=== PATIENT | male | born 1960 | race African-American/Black ===

== ENCOUNTER 2018-05-21 13:32 | Inpatient (IN) | payer OTHER ==
[2018-05-21] MEDS: METHYLPREDNISOLONE 125 MG INJ IV (14:27)
[2018-05-21] MEDS: ONDANSETRON 4 MG INJ IV ×2 (14:27→16:44)
[2018-05-21] MEDS: HYDROmorphONE 1 MG/ML SYG IV ×2 (14:27→16:44)
[2018-05-21] MEDS: NICARDipine HCL 30 MG CAPSULE PO ×2 (17:47→18:43)
[2018-05-21] MEDS: hydrALAzine 20 MG INJ IV (18:45)
[2018-05-21 19:03] LABS: WHITE BLOOD COUNT 25.9 10^3/ul (4.8-10.8)
[2018-05-21 19:03] LABS: ABNORMAL IP MESSAGE 1; HEMATOCRIT 36.8 % (42.0-52.0); HEMOGLOBIN 12.5 g/dl (14.0-18.0); MEAN CORPUSCULAR HEMOGLOBIN 24.9 pg (29.0-33.0); MEAN CORPUSCULAR VOLUME 73.3 fl (82.0-101.0); MEAN PLATELET VOLUME 11.9 fl (7.4-10.4); PLATELET COUNT 221 10^3/UL (140-415); POSITIVE DIFF @See below; RED BLOOD COUNT 5.02 10^6/ul (4.70-6.10); RED CELL DISTRIBUTION WIDTH 13.8 % (11.5-14.5)
[2018-05-21 19:11] LABS: ADD MAN DIFF? YES
[2018-05-21 19:23] LABS: ALANINE AMINOTRANSFERASE 57 IU/L (13-69); ALBUMIN 3.7 g/dl (3.3-4.9); ALBUMIN/GLOBULIN RATIO 1.05; ALKALINE PHOSPHATASE 109 IU/L (42-121); ANION GAP 16 (8-16); ASPARTATE AMINO TRANSFERASE 64 IU/L (15-46); BILIRUBIN,INDIRECT 0.8 mg/dl (0-1.1); BILIRUBIN,TOTAL 0.9 mg/dl (0.2-1.3); BLOOD UREA NITROGEN 46 mg/dl (7-20); CALCIUM 8.6 mg/dl (8.4-10.2); CARBON DIOXIDE 26 mmol/L (21-31); CHLORIDE 94 mmol/L (97-110); CREATININE 2.08 mg/dl (0.61-1.24); GLUCOSE 140 mg/dl (70-220); POTASSIUM 3.8 mmol/L (3.5-5.1); SODIUM 132 mmol/L (135-144); TOTAL PROTEIN 7.2 g/dl (6.1-8.1)
[2018-05-21] MEDS ORDERED: ONDANSETRON 4 MG INJ IV ×2 (19:30→20:30)
[2018-05-21] MEDS ORDERED: ACETAMINOPHEN 325 MG TAB PO ×2 (19:30→20:30)
[2018-05-21 19:55] LABS: ANISOCYTOSIS 1+ (0-0); BAND NEUTROPHILS #M 2.5 10^3/ul (0.0-0.6); BAND NEUTROPHILS % (M) 10 % (0-4); EOSINOPHILS % (M) 1 % (0-7); GIANT THROMBO% (M) 1 % (0-0); LYMPHOCYTES #M 0.5 10^3/ul (0.8-2.9); LYMPHOCYTES % (M) 2 % (15-51); MONOCYTE #M 0.5 10^3/ul (0.3-0.9); MONOCYTES % (M) 2 % (0-11); PLATELET ESTIMATE NORMAL; POIKILOCYTOSIS 2+ (0-0); SEG NEUT #M 22.7 10^3/ul (1.6-7.5); SEGMENTED NEUTROPHILS (M) % 85 % (39-77); SMUDGE%M 26 % (0-0)
[2018-05-21] MEDS ORDERED: NACL 0.9% 3 ML SYG IV (20:30)
[2018-05-21] MEDS ORDERED: VANCOMYCIN IV PER PHARMACY XX (20:30)
[2018-05-21] MEDS ORDERED: ALBUTEROL/IPRATROPIUM (NEB) 3 ML AMP HHN (20:30)
[2018-05-21] MEDS ORDERED: HYDROCODONE/APAP (5/325) TAB PO (20:30)
[2018-05-21] MEDS: SOD CHLORIDE 0.9% 1,000 ML IV (23:13)
[2018-05-21] MEDS: VANCOMYCIN 2 GM in SOD CHLORIDE 0.9% 500 ML IVPB (23:14)
[2018-05-21] MEDS: HYDROCODONE/APAP (5/325) TAB PO (23:21)
[2018-05-22 03:08] LABS: ADD UMIC YES; UR ASCORBIC ACID NEGATIVE (NEGATIVE); UR BACTERIA FEW /HPF (NONE SEEN); UR BILIRUBIN (Dip) NEGATIVE (NEGATIVE); UR BLOOD (Dip) 2+ mg/dL (NEGATIVE); UR CLARITY CLOUDY (CLEAR); UR COLOR AMBER (YELLOW); UR GLUCOSE (Dip) NEGATIVE (NEGATIVE); UR KETONES (Dip) NEGATIVE (NEGATIVE); UR LEUKOCYTE ESTERASE (Dip) NEGATIVE Leu/ul (NEGATIVE); UR NITRITE (Dip) NEGATIVE (NEGATIVE); UR RBC 10 /HPF (0-5); UR SPECIFIC GRAVITY (Dip) 1.018 (1.003-1.030); UR TOTAL PROTEIN (Dip) 2+ mg/dl (NEGATIVE); UR UROBILINOGEN (Dip) 1+ mg/dL (NEGATIVE); UR WBC 4 /HPF (0-5)
[2018-05-22 05:05] LABS: ADD MAN DIFF? NO
[2018-05-22 05:08] LABS: ABNORMAL IP MESSAGE 1; BASOPHILS % 0.2 % (0.0-2.0); HEMATOCRIT 36.8 % (42.0-52.0); HEMOGLOBIN 12.4 g/dl (14.0-18.0); LYMPHOCYTES # 0.8 10^3/ul (0.8-2.9); LYMPHOCYTES % 3.2 % (15.0-51.0); MEAN CORPUSCULAR HEMOGLOBIN 24.6 pg (29.0-33.0); MEAN CORPUSCULAR HGB CONC 33.7 g/dl (32.0-37.0); MEAN PLATELET VOLUME 12.1 fl (7.4-10.4); NEUTROPHIL # 22.7 10^3/ul (1.6-7.5); NEUTROPHILS % 92.1 % (39.0-77.0); PLATELET COUNT 161 10^3/UL (140-415); POSITIVE DIFF @See below; RED BLOOD COUNT 5.04 10^6/ul (4.70-6.10); RED CELL DISTRIBUTION WIDTH 13.6 % (11.5-14.5)
[2018-05-22 05:08] LABS: WHITE BLOOD COUNT 24.7 10^3/ul (4.8-10.8)
[2018-05-22 05:52] LABS: ALANINE AMINOTRANSFERASE 60 IU/L (13-69); ALBUMIN 2.9 g/dl (3.3-4.9); ALBUMIN/GLOBULIN RATIO 0.78; ALKALINE PHOSPHATASE 115 IU/L (42-121); ANION GAP 17 (8-16); ASPARTATE AMINO TRANSFERASE 68 IU/L (15-46); BILIRUBIN,INDIRECT 0.7 mg/dl (0-1.1); BILIRUBIN,TOTAL 0.7 mg/dl (0.2-1.3); BLOOD UREA NITROGEN 57 mg/dl (7-20); CALCIUM 8.6 mg/dl (8.4-10.2); CARBON DIOXIDE 26 mmol/L (21-31); CHLORIDE 95 mmol/L (97-110); CHOL/HDL RATIO 8.1 RATIO; CHOLESTEROL 155 mg/dl (100-200); CREATININE 2.33 mg/dl (0.61-1.24); GLUCOSE 168 mg/dl (70-220); HDL CHOLESTEROL 19 mg/dl (28-71); LDL CHOLESTEROL,CALCULATED 33 mg/dl; MAGNESIUM 2.9 mg/dl (1.7-2.5); PHOSPHORUS 4.3 mg/dl (2.5-4.9); POTASSIUM 3.6 mmol/L (3.5-5.1); SODIUM 134 mmol/L (135-144); TOTAL PROTEIN 6.6 g/dl (6.1-8.1); TRIGLYCERIDES 513 mg/dl (0-149)
[2018-05-22] MEDS: SOD CHLORIDE 0.9% 1,000 ML IV ×2 (06:30→16:13)
[2018-05-22 06:41] LABS: HEMOGLOBIN A1C 5.1 % (0-5.9)
[2018-05-22] MEDS: CEPASTAT LOZENGE MT (08:53)
[2018-05-22] MEDS: HYDROCODONE/APAP (5/325) TAB PO ×2 (08:54→18:40)
[2018-05-22 09:20] LABS: IRON 34 ug/dl (35-150)
[2018-05-22 09:29] LABS: % IRON SATURATION 18 % SAT (22-52); TOTAL IRON BINDING CAPACITY 187 ug/dl (241-421)
[2018-05-22 09:52] LABS: C-REACTIVE PROTEIN 51.2 mg/dl (0.0-0.9)
[2018-05-22 11:00] LABS: ADD UMIC YES; UR ASCORBIC ACID NEGATIVE (NEGATIVE); UR BACTERIA FEW /HPF (NONE SEEN); UR BILIRUBIN (Dip) NEGATIVE (NEGATIVE); UR BLOOD (Dip) 2+ mg/dL (NEGATIVE); UR CLARITY CLOUDY (CLEAR); UR COLOR YELLOW (YELLOW); UR GLUCOSE (Dip) NEGATIVE (NEGATIVE); UR KETONES (Dip) NEGATIVE (NEGATIVE); UR LEUKOCYTE ESTERASE (Dip) NEGATIVE Leu/ul (NEGATIVE); UR NITRITE (Dip) NEGATIVE (NEGATIVE); UR RBC 16 /HPF (0-5); UR SPECIFIC GRAVITY (Dip) 1.013 (1.003-1.030); UR TOTAL PROTEIN (Dip) 1+ mg/dl (NEGATIVE); UR UROBILINOGEN (Dip) 1+ mg/dL (NEGATIVE); UR WBC 5 /HPF (0-5)
[2018-05-22 11:12] LABS: SODIUM,URINE RANDOM < 13 mmol/L (30-90)
[2018-05-22 14:08] LABS: AMPHETAMINE/METHAMPHETAMINE Negative (NEGATIVE); BARBITURATES Negative (NEGATIVE); BENZODIAZEPINES Negative (NEGATIVE); CANNABINOIDS Negative (NEGATIVE); COCAINE Negative (NEGATIVE)
[2018-05-22 14:20] LABS: OPIATES Positive (NEGATIVE)
[2018-05-22] MEDS: ASPIRIN 81 MG TAB PO (14:23)
[2018-05-22] MEDS: METOPROLOL 25 MG TAB PO ×2 (14:24→21:07)
[2018-05-22] MEDS: metroNIDAZOLE 500 MG/NS (PMX) 100 ML IVPB ×2 (14:25→21:07)
[2018-05-22] MEDS: AZTREONAM 1 GM/NS (PMX) 50 ML IVPB (16:11)
[2018-05-22] MEDS: LORAZEPAM 2 MG INJ IV (17:45)
[2018-05-22] MEDS: hydrALAzine 20 MG INJ IV (20:14)
[2018-05-22 20:50] LABS: INR 1.01; PROTIME 13.4 Sec (11.9-14.9)
[2018-05-22 20:51] LABS: PARTIAL THROMBOPLASTIN TIME 25.9 Sec (23.0-35.0)
[2018-05-22] MEDS ORDERED: VANCOMYCIN 1.5 GM in SOD CHLORIDE 0.9% 250 ML IVPB (23:00)
[2018-05-22] MEDS: VANCOMYCIN 1.25 GM in SOD CHLORIDE 0.9% 250 ML IVPB (23:25)
[2018-05-23] MEDS: AZTREONAM 1 GM/NS (PMX) 50 ML IVPB ×2 (02:11→07:55)
[2018-05-23] MEDS: SOD CHLORIDE 0.9% 1,000 ML IV ×3 (02:30→22:25)
[2018-05-23 05:14] LABS: ADD MAN DIFF? NO
[2018-05-23 05:18] LABS: ABNORMAL IP MESSAGE 1; BASOPHIL # 0.1 10^3/ul (0.0-0.1); BASOPHILS % 0.2 % (0.0-2.0); HEMATOCRIT 36.6 % (42.0-52.0); HEMOGLOBIN 12.7 g/dl (14.0-18.0); LYMPHOCYTES # 0.9 10^3/ul (0.8-2.9); LYMPHOCYTES % 2.7 % (15.0-51.0); MEAN CORPUSCULAR HEMOGLOBIN 24.8 pg (29.0-33.0); MEAN CORPUSCULAR HGB CONC 34.7 g/dl (32.0-37.0); MEAN CORPUSCULAR VOLUME 71.5 fl (82.0-101.0); MEAN PLATELET VOLUME 12.3 fl (7.4-10.4); MONOCYTE # 2.8 10^3/ul (0.3-0.9); MONOCYTES % 8.6 % (0.0-11.0); NEUTROPHIL # 28.7 10^3/ul (1.6-7.5); NEUTROPHILS % 86.8 % (39.0-77.0); PLATELET COUNT 190 10^3/UL (140-415); POSITIVE DIFF @See below; RED BLOOD COUNT 5.12 10^6/ul (4.70-6.10); RED CELL DISTRIBUTION WIDTH 13.4 % (11.5-14.5)
[2018-05-23 05:40] LABS: ANION GAP 15 (8-16); BLOOD UREA NITROGEN 57 mg/dl (7-20); CALCIUM 8.5 mg/dl (8.4-10.2); CARBON DIOXIDE 25 mmol/L (21-31); CHLORIDE 98 mmol/L (97-110); CREATININE 1.92 mg/dl (0.61-1.24); GLUCOSE 125 mg/dl (70-220); MAGNESIUM 2.8 mg/dl (1.7-2.5); PHOSPHORUS 3.5 mg/dl (2.5-4.9); POTASSIUM 3.7 mmol/L (3.5-5.1); SODIUM 134 mmol/L (135-144)
[2018-05-23] MEDS: metroNIDAZOLE 500 MG/NS (PMX) 100 ML IVPB (06:10)
[2018-05-23] MEDS: METOPROLOL 25 MG TAB PO ×2 (07:48→21:17)
[2018-05-23] MEDS: ASPIRIN 81 MG TAB PO (09:00)
[2018-05-23] MEDS: DOCUSATE SODIUM 250 MG CAP PO (09:00)
[2018-05-23] MEDS: GELATIN SIZE 100 SPONGE (09:56)
[2018-05-23] MEDS: POLYMYXIN/BACITRACIN 1L IRRIG (09:56)
[2018-05-23] MEDS: LIDOCAINE 1%/EPI 30 ML INJ (09:56)
[2018-05-23] MEDS: THROMBIN 5000 UNIT VIAL (09:56)
[2018-05-23] MEDS: BUPIVACAINE 0.5% (SDV) 30 ML INJ (09:56)
[2018-05-23] MEDS ORDERED: POLYMYXIN/BACITRACIN 1L IRRIG (11:47)
[2018-05-23] MEDS ORDERED: HYDROmorphONE 1 MG/5 ML IV SYRINGE IV ×3 (12:45→13:00)
[2018-05-23] MEDS: HYDROmorphONE 1 MG/5 ML IV SYRINGE IV ×2 (12:55→13:06)
[2018-05-23] MEDS ORDERED: LABETALOL HCL 20MG INJ IV (13:00)
[2018-05-23] MEDS ORDERED: ONDANSETRON 4 MG INJ IV (13:00)
[2018-05-23] MEDS ORDERED: METOCLOPRAMIDE 10 MG INJ IV (13:00)
[2018-05-23] MEDS ORDERED: OXYCODONE/ACETAMINOPHEN (5/325) TAB PO ×2 (13:00)
[2018-05-23] MEDS ORDERED: EPHEDrine SULFATE 50 MG/5 ML SYG IV (13:00)
[2018-05-23] MEDS ORDERED: hydrALAzine 20 MG INJ IV (13:00)
[2018-05-23] MEDS ORDERED: KETOROLAC 30 MG INJ IV (13:00)
[2018-05-23] MEDS ORDERED: ALBUTEROL 0.083% (NEB) 2.5 MG/3 ML AMP HHN (13:00)
[2018-05-23] MEDS ORDERED: NALOXONE (0.4 MG/ML) INJ IV (13:00)
[2018-05-23] MEDS ORDERED: MEPERIDINE 25 MG INJ IV (13:00)
[2018-05-23] MEDS ORDERED: FENTAnyl 50 MCG/ML VIAL IV ×3 (13:00)
[2018-05-23] MEDS ORDERED: DIPHENHYDRAMINE 50 MG INJ IV (13:00)
[2018-05-23] MEDS: MEROPENEM 500MG/50 ML (PMX) 50 ML IVPB ×2 (14:35→22:25)
[2018-05-23] MEDS: SOD FERRIC GLUC COMPLX 125 MG in SOD CHLORIDE 0.9% 100 ML IVPB (17:42)
[2018-05-23] MEDS: FISH OIL 1,000 MG CAP PO (21:16)
[2018-05-23] MEDS: VANCOMYCIN 1.25 GM in SOD CHLORIDE 0.9% 250 ML IVPB (23:55)
[2018-05-24 05:18] LABS: WHITE BLOOD COUNT 22.1 10^3/ul (4.8-10.8)
[2018-05-24 05:18] LABS: ABNORMAL IP MESSAGE 1; HEMATOCRIT 31.4 % (42.0-52.0); HEMOGLOBIN 10.9 g/dl (14.0-18.0); MEAN CORPUSCULAR HEMOGLOBIN 25.1 pg (29.0-33.0); MEAN CORPUSCULAR HGB CONC 34.7 g/dl (32.0-37.0); MEAN CORPUSCULAR VOLUME 72.2 fl (82.0-101.0); PLATELET COUNT 175 10^3/UL (140-415); POSITIVE DIFF @See below; RED BLOOD COUNT 4.35 10^6/ul (4.70-6.10); RED CELL DISTRIBUTION WIDTH 13.8 % (11.5-14.5)
[2018-05-24 05:39] LABS: ANION GAP 14 (8-16); BLOOD UREA NITROGEN 53 mg/dl (7-20); CALCIUM 7.5 mg/dl (8.4-10.2); CARBON DIOXIDE 26 mmol/L (21-31); CHLORIDE 97 mmol/L (97-110); CREATININE 1.65 mg/dl (0.61-1.24); GLUCOSE 100 mg/dl (70-220); MAGNESIUM 2.4 mg/dl (1.7-2.5); PHOSPHORUS 3.1 mg/dl (2.5-4.9); POTASSIUM 3.8 mmol/L (3.5-5.1); SODIUM 133 mmol/L (135-144)
[2018-05-24 05:45] LABS: ADD MAN DIFF? YES
[2018-05-24] MEDS: MEROPENEM 500MG/50 ML (PMX) 50 ML IVPB ×3 (06:09→20:34)
[2018-05-24] MEDS: HYDROCODONE/APAP (10/325) TAB PO ×2 (06:16→18:11)
[2018-05-24] MEDS: CEPASTAT LOZENGE MT (06:20)
[2018-05-24] MEDS: DOCUSATE SODIUM 250 MG CAP PO (09:00)
[2018-05-24] MEDS: ASPIRIN 81 MG TAB PO (09:00)
[2018-05-24] MEDS: FISH OIL 1,000 MG CAP PO ×2 (09:00→20:34)
[2018-05-24] MEDS: METOPROLOL 25 MG TAB PO ×2 (09:01→20:34)
[2018-05-24] MEDS: HYDROmorphONE 0.5 MG/0.5 ML SYG IV (10:56)
[2018-05-24] MEDS: SOD CHLORIDE 0.9% 1,000 ML IV ×2 (13:21→18:30)
[2018-05-24 13:29] LABS: ANISOCYTOSIS 2+ (0-0); BAND NEUTROPHILS #M 2.2 10^3/ul (0.0-0.6); BAND NEUTROPHILS % (M) 10 % (0-4); BURR CELLS 1+ (0-0); LYMPHOCYTES #M 0.6 10^3/ul (0.8-2.9); LYMPHOCYTES % (M) 3 % (15-51); METAMYELOCYTES #M 0.6 10^3/ul (0.0-0.0); METAMYELOCYTES %M 3 % (0-0); MONOCYTE #M 1.3 10^3/ul (0.3-0.9); MONOCYTES % (M) 6 % (0-11); MYELOCYTES #M 0.6 10^3/ul (0.0-0.0); MYELOCYTES % (M) 3 % (0-0); PLATELET ESTIMATE NORMAL; POIKILOCYTOSIS 1+ (0-0); SEG NEUT #M 17.1 10^3/ul (1.6-7.5); SEGMENTED NEUTROPHILS (M) % 75 % (39-77); SMUDGE%M 5 % (0-0); TARGET CELLS 1+ (0-0)
[2018-05-24 14:50] LABS: HEPATITIS B SURFACE ANTIGEN NEGATIVE (NEGATIVE)
[2018-05-24 15:06] LABS: HEPATITIS B SURFACE ANTIBODY NEGATIVE (NEGATIVE)
[2018-05-24 15:06] LABS: HEPATITIS C VIRAL ANTIBODY NEGATIVE (NEGATIVE); HIV 1&2 ANTIBODY NEGATIVE (NEGATIVE)
[2018-05-24] MEDS: SOD FERRIC GLUC COMPLX 125 MG in SOD CHLORIDE 0.9% 100 ML IVPB (18:11)
[2018-05-24 23:08] LABS: VANCOMYCIN,TROUGH 9.2 ug/ml (10.0-20.0)
[2018-05-24] MEDS: VANCOMYCIN 1.25 GM in SOD CHLORIDE 0.9% 250 ML IVPB (23:20)
[2018-05-25] MEDS: hydrALAzine 20 MG INJ IV ×2 (02:19→20:15)
[2018-05-25] MEDS: SOD CHLORIDE 0.9% 1,000 ML IV ×3 (04:30→20:56)
[2018-05-25] MEDS: MEROPENEM 500MG/50 ML (PMX) 50 ML IVPB (05:01)
[2018-05-25 05:26] LABS: ADD MAN DIFF? NO
[2018-05-25 05:33] LABS: WHITE BLOOD COUNT 29.6 10^3/ul (4.8-10.8)
[2018-05-25 05:33] LABS: ABNORMAL IP MESSAGE 1; BASOPHIL # 0.2 10^3/ul (0.0-0.1); BASOPHILS % 0.5 % (0.0-2.0); EOSINOPHILS # 0.1 10^3/ul (0.0-0.5); EOSINOPHILS % 0.4 % (0.0-7.0); HEMATOCRIT 31.9 % (42.0-52.0); HEMOGLOBIN 10.9 g/dl (14.0-18.0); LYMPHOCYTES # 1.8 10^3/ul (0.8-2.9); LYMPHOCYTES % 5.9 % (15.0-51.0); MEAN CORPUSCULAR HEMOGLOBIN 24.6 pg (29.0-33.0); MEAN CORPUSCULAR HGB CONC 34.2 g/dl (32.0-37.0); MEAN PLATELET VOLUME 12.2 fl (7.4-10.4); MONOCYTE # 1.2 10^3/ul (0.3-0.9); MONOCYTES % 3.9 % (0.0-11.0); NEUTROPHIL # 24.6 10^3/ul (1.6-7.5); NEUTROPHILS % 83.1 % (39.0-77.0); PLATELET COUNT 240 10^3/UL (140-415); POSITIVE DIFF @See below; RED BLOOD COUNT 4.43 10^6/ul (4.70-6.10); RED CELL DISTRIBUTION WIDTH 13.8 % (11.5-14.5)
[2018-05-25 06:10] LABS: ANION GAP 15 (8-16); BLOOD UREA NITROGEN 43 mg/dl (7-20); CALCIUM 8.1 mg/dl (8.4-10.2); CARBON DIOXIDE 26 mmol/L (21-31); CHLORIDE 99 mmol/L (97-110); CREATININE 1.56 mg/dl (0.61-1.24); GLUCOSE 84 mg/dl (70-220); MAGNESIUM 2.6 mg/dl (1.7-2.5); PHOSPHORUS 2.8 mg/dl (2.5-4.9); POTASSIUM 3.5 mmol/L (3.5-5.1); SODIUM 136 mmol/L (135-144)
[2018-05-25] MEDS: CEPASTAT LOZENGE MT (06:54)
[2018-05-25] MEDS: DOCUSATE SODIUM 250 MG CAP PO (08:59)
[2018-05-25] MEDS: ASPIRIN 81 MG TAB PO (08:59)
[2018-05-25] MEDS: FISH OIL 1,000 MG CAP PO ×2 (09:01→21:11)
[2018-05-25] MEDS: HYDROCODONE/APAP (10/325) TAB PO ×2 (09:01→16:25)
[2018-05-25] MEDS: METOPROLOL 25 MG TAB PO ×2 (09:02→21:11)
[2018-05-25 09:53] LABS: ANISOCYTOSIS 2+ (0-0); BAND NEUTROPHILS % (M) 7 % (0-4); BURR CELLS 3+ (0-0); LYMPHOCYTES #M 1.1 10^3/ul (0.8-2.9); LYMPHOCYTES % (M) 4 % (15-51); METAMYELOCYTES #M 0.2 10^3/ul (0.0-0.0); METAMYELOCYTES %M 1 % (0-0); MONOCYTE #M 0.2 10^3/ul (0.3-0.9); MONOCYTES % (M) 1 % (0-11); PLATELET ESTIMATE NORMAL; PROMYELOCYTES #M 0.5 10^3/ul (0-0); PROMYELOCYTES % (M) 2 % (0-0); REACTIVE LYMPHOCYTES #M 1.1 10^3/ul (0.0-0.0); REACTIVE LYMPHOCYTES% (M) 4 % (0-0); SEG NEUT #M 24.6 10^3/ul (1.6-7.5); SEGMENTED NEUTROPHILS (M) % 81 % (39-77); SMUDGE%M 32 % (0-0); TARGET CELLS 2+ (0-0)
[2018-05-25] MEDS ORDERED: NEOMYC/POLYMYX/BACIT 0.9 GM OINT (11:55)
[2018-05-25] MEDS: VANCOMYCIN 750 MG in SOD CHLORIDE 0.9% 150 ML IVPB (12:53)
[2018-05-25] MEDS: CEFTRIAXONE 1 GM/50 ML (PMX) 50 ML IVPB (14:43)
[2018-05-25] MEDS: MAGNESIUM CITRATE 300 ML BTL PO (14:43)
[2018-05-25] MEDS: SOD FERRIC GLUC COMPLX 125 MG in SOD CHLORIDE 0.9% 100 ML IVPB (16:25)
[2018-05-25] MEDS ORDERED: HYDROmorphONE 2 MG TAB PO (17:00)
[2018-05-25] MEDS ORDERED: PHENYLephrine (100 MCG/ML) 5ML SYG (17:05)
[2018-05-25] MEDS ORDERED: SUGAMMADEX SODIUM 200 MG/2 ML VIAL IV (17:05)
[2018-05-25] MEDS ORDERED: morphine 10 MG INJ (17:05)
[2018-05-25 17:11] LABS: CREATININE, RANDOM URINE 81 mg/dL (20-320); MICROALBUMIN 6.8 mg/dL; MICROALBUMIN/CREATININE RATIO 84 (<30)
[2018-05-25] MEDS: CIPROFLOXACIN 500 MG TAB PO (18:33)
[2018-05-25] MEDS ORDERED: hydrALAzine 20 MG INJ IV (22:30)
[2018-05-26] MEDS: SOD CHLORIDE 0.9% 1,000 ML IV (01:00)
[2018-05-26 04:56] LABS: ABNORMAL IP MESSAGE 1; HEMATOCRIT 29.3 % (42.0-52.0); HEMOGLOBIN 10.3 g/dl (14.0-18.0); MEAN CORPUSCULAR HEMOGLOBIN 25.1 pg (29.0-33.0); MEAN CORPUSCULAR HGB CONC 35.2 g/dl (32.0-37.0); MEAN CORPUSCULAR VOLUME 71.5 fl (82.0-101.0); MEAN PLATELET VOLUME 11.5 fl (7.4-10.4); PLATELET COUNT 303 10^3/UL (140-415); POSITIVE DIFF @See below
[2018-05-26 05:01] LABS: ADD MAN DIFF? YES
[2018-05-26 05:25] LABS: ANION GAP 12 (8-16); BLOOD UREA NITROGEN 38 mg/dl (7-20); CARBON DIOXIDE 28 mmol/L (21-31); CHLORIDE 100 mmol/L (97-110); CREATININE 1.51 mg/dl (0.61-1.24); GLUCOSE 105 mg/dl (70-220); MAGNESIUM 2.6 mg/dl (1.7-2.5); PHOSPHORUS 3.7 mg/dl (2.5-4.9); POTASSIUM 3.9 mmol/L (3.5-5.1); SODIUM 136 mmol/L (135-144)
[2018-05-26] MEDS: CIPROFLOXACIN 500 MG TAB PO ×2 (05:51→17:09)
[2018-05-26 06:45] LABS: ANISOCYTOSIS 1+ (0-0); BAND NEUTROPHILS % (M) 3 % (0-4); BURR CELLS 1+ (0-0); HYPOCHROMASIA 1+ (0-0); LYMPHOCYTES #M 2.1 10^3/ul (0.8-2.9); LYMPHOCYTES % (M) 6 % (15-51); MICROCYTOSIS 1+ (0-0); MONOCYTE #M 1.4 10^3/ul (0.3-0.9); MONOCYTES % (M) 4 % (0-11); PLATELET ESTIMATE NORMAL; POIKILOCYTOSIS 1+ (0-0); POLYCHROMASIA 1+ (0-0); SEG NEUT #M 30.8 10^3/ul (1.6-7.5); SEGMENTED NEUTROPHILS (M) % 87 % (39-77); SMUDGE%M 106 % (0-0); TARGET CELLS 1+ (0-0)
[2018-05-26] MEDS: FISH OIL 1,000 MG CAP PO ×2 (08:21→21:41)
[2018-05-26] MEDS: ASPIRIN 81 MG TAB PO (08:21)
[2018-05-26] MEDS: METOPROLOL 25 MG TAB PO ×2 (08:22→21:41)
[2018-05-26] MEDS: DOCUSATE SODIUM 250 MG CAP PO (09:00)
[2018-05-26] MEDS: HYDROCODONE/APAP (10/325) TAB PO ×2 (10:14→21:48)
[2018-05-26 14:19] LABS: HIV 1&2 ANTIBODY NEGATIVE (NEGATIVE)
[2018-05-26] MEDS: HYDROCORTISONE 1% 28 GM CR TOP ×2 (15:08→21:41)
[2018-05-26] MEDS: CEFTRIAXONE 1 GM/50 ML (PMX) 50 ML IVPB (15:09)
[2018-05-26] MEDS: ONDANSETRON 4 MG INJ IV (20:09)
[2018-05-26] MEDS: hydrALAzine 20 MG INJ IV (20:10)
[2018-05-27] MEDS: SOD CHLORIDE 0.9% 1,000 ML IV (01:54)
[2018-05-27] MEDS: CIPROFLOXACIN 500 MG TAB PO (06:15)
[2018-05-27 06:27] LABS: WHITE BLOOD COUNT 32.3 10^3/ul (4.8-10.8)
[2018-05-27 06:27] LABS: ABNORMAL IP MESSAGE 1; HEMATOCRIT 26.5 % (42.0-52.0); HEMOGLOBIN 9.1 g/dl (14.0-18.0); MEAN CORPUSCULAR HGB CONC 34.3 g/dl (32.0-37.0); MEAN CORPUSCULAR VOLUME 72.8 fl (82.0-101.0); MEAN PLATELET VOLUME 11.3 fl (7.4-10.4); PLATELET COUNT 383 10^3/UL (140-415); POSITIVE DIFF @See below; RED BLOOD COUNT 3.64 10^6/ul (4.70-6.10); RED CELL DISTRIBUTION WIDTH 14.2 % (11.5-14.5)
[2018-05-27 06:39] LABS: ADD MAN DIFF? YES
[2018-05-27 07:40] LABS: ANION GAP 10 (8-16); BLOOD UREA NITROGEN 34 mg/dl (7-20); CARBON DIOXIDE 29 mmol/L (21-31); CHLORIDE 102 mmol/L (97-110); CREATININE 1.58 mg/dl (0.61-1.24); GLUCOSE 82 mg/dl (70-220); MAGNESIUM 2.5 mg/dl (1.7-2.5); PHOSPHORUS 4.7 mg/dl (2.5-4.9); POTASSIUM 4.1 mmol/L (3.5-5.1); SODIUM 137 mmol/L (135-144)
[2018-05-27] MEDS: DOCUSATE SODIUM 250 MG CAP PO (09:19)
[2018-05-27] MEDS: ASPIRIN 81 MG TAB PO (09:19)
[2018-05-27] MEDS: HYDROCODONE/APAP (10/325) TAB PO (09:20)
[2018-05-27] MEDS: FISH OIL 1,000 MG CAP PO ×2 (09:20→20:09)
[2018-05-27] MEDS: METOPROLOL 25 MG TAB PO (09:21)
[2018-05-27] MEDS: HYDROCORTISONE 1% 28 GM CR TOP ×2 (09:22→20:10)
[2018-05-27 09:43] LABS: ANISOCYTOSIS 1+ (0-0); BAND NEUTROPHILS #M 1.6 10^3/ul (0.0-0.6); BAND NEUTROPHILS % (M) 5 % (0-4); HYPOCHROMASIA 1+ (0-0); LYMPHOCYTES #M 0.9 10^3/ul (0.8-2.9); LYMPHOCYTES % (M) 3 % (15-51); METAMYELOCYTES #M 0.3 10^3/ul (0.0-0.0); METAMYELOCYTES %M 1 % (0-0); MONOCYTE #M 0.9 10^3/ul (0.3-0.9); MONOCYTES % (M) 3 % (0-11); MYELOCYTES #M 1.6 10^3/ul (0.0-0.0); MYELOCYTES % (M) 5 % (0-0); PLATELET ESTIMATE NORMAL; SEG NEUT #M 27.3 10^3/ul (1.6-7.5); SEGMENTED NEUTROPHILS (M) % 83 % (39-77); SMUDGE%M 19 % (0-0)
[2018-05-27 10:19] LABS: OCCULT BLOOD STOOL NEGATIVE (NEGATIVE)
[2018-05-27] MEDS ORDERED: VANCOMYCIN IV PER PHARMACY XX (11:30)
[2018-05-27] MEDS: MEROPENEM 1 GM/50ML(PMX) 50 ML IVPB ×2 (13:14→20:10)
[2018-05-27] MEDS: VANCOMYCIN 1.75 GM in SOD CHLORIDE 0.9% 500 ML IVPB (14:27)
[2018-05-27] MEDS ORDERED: NEOMYC/POLYMYX/BACIT 0.9 GM OINT (16:58)
[2018-05-27] MEDS: METOPROLOL 50 MG TAB PO (20:09)
[2018-05-27] MEDS: FERROUS SULFATE (EC) 325 MG TAB PO (20:10)
[2018-05-27] MEDS: NIFEdipine (XL) 30 MG TAB PO (20:10)
[2018-05-28] MEDS: VANCOMYCIN 750 MG in SOD CHLORIDE 0.9% 150 ML IVPB ×2 (02:25→14:08)
[2018-05-28] MEDS: ASPIRIN 81 MG TAB PO (09:18)
[2018-05-28] MEDS: FERROUS SULFATE (EC) 325 MG TAB PO ×2 (09:18→20:35)
[2018-05-28] MEDS: DOCUSATE SODIUM 250 MG CAP PO (09:18)
[2018-05-28] MEDS: FISH OIL 1,000 MG CAP PO ×2 (09:18→20:35)
[2018-05-28] MEDS: NIFEdipine (XL) 60 MG TAB PO ×2 (09:19→20:36)
[2018-05-28] MEDS: METOPROLOL 50 MG TAB PO ×2 (09:19→20:36)
[2018-05-28] MEDS: HYDROCORTISONE 1% 28 GM CR TOP ×2 (09:20→20:37)
[2018-05-28] MEDS: MEROPENEM 1 GM/50ML(PMX) 50 ML IVPB ×2 (09:20→20:40)
[2018-05-28 09:45] LABS: WHITE BLOOD COUNT 33.1 10^3/ul (4.8-10.8)
[2018-05-28 09:45] LABS: ABNORMAL IP MESSAGE 1; HEMATOCRIT 26.1 % (42.0-52.0); HEMOGLOBIN 8.9 g/dl (14.0-18.0); MEAN CORPUSCULAR HEMOGLOBIN 24.5 pg (29.0-33.0); MEAN CORPUSCULAR HGB CONC 34.1 g/dl (32.0-37.0); MEAN CORPUSCULAR VOLUME 71.9 fl (82.0-101.0); MEAN PLATELET VOLUME 10.6 fl (7.4-10.4); PLATELET COUNT 460 10^3/UL (140-415); POSITIVE DIFF @See below; RED BLOOD COUNT 3.63 10^6/ul (4.70-6.10); RED CELL DISTRIBUTION WIDTH 14.1 % (11.5-14.5)
[2018-05-28 09:51] LABS: ADD MAN DIFF? YES
[2018-05-28 10:10] LABS: ANION GAP 10 (8-16); BLOOD UREA NITROGEN 31 mg/dl (7-20); CALCIUM 7.9 mg/dl (8.4-10.2); CARBON DIOXIDE 26 mmol/L (21-31); CHLORIDE 104 mmol/L (97-110); CREATININE 1.39 mg/dl (0.61-1.24); GLUCOSE 124 mg/dl (70-220); MAGNESIUM 2.3 mg/dl (1.7-2.5); PHOSPHORUS 4.7 mg/dl (2.5-4.9); POTASSIUM 4.3 mmol/L (3.5-5.1); SODIUM 136 mmol/L (135-144)
[2018-05-28 10:44] LABS: BAND NEUTROPHILS #M 0.6 10^3/ul (0.0-0.6); BAND NEUTROPHILS % (M) 2 % (0-4); BASOPHIL #M 0.3 10^3/ul (0.0-0.0); BASOPHILS % (M) 1 % (0-2); GIANT THROMBO% (M) 1 % (0-0); LYMPHOCYTES #M 0.6 10^3/ul (0.8-2.9); LYMPHOCYTES % (M) 2 % (15-51); METAMYELOCYTES #M 0.3 10^3/ul (0.0-0.0); METAMYELOCYTES %M 1 % (0-0); MYELOCYTES #M 0.3 10^3/ul (0.0-0.0); MYELOCYTES % (M) 1 % (0-0); PLATELET ESTIMATE INCREASED; POIKILOCYTOSIS 3+ (0-0); SEGMENTED NEUTROPHILS (M) % 93 % (39-77); SMUDGE%M 11 % (0-0); TARGET CELLS 3+ (0-0)
[2018-05-28 23:00] LABS: PROSTATE SPECIFIC ANTIGEN 11.9 ng/ml (0.0-4.0)
[2018-05-29] MEDS: VANCOMYCIN 750 MG in SOD CHLORIDE 0.9% 150 ML IVPB ×2 (03:25→16:05)
[2018-05-29] MEDS: MEROPENEM 1 GM/50ML(PMX) 50 ML IVPB ×2 (08:30→20:15)
[2018-05-29] MEDS: FERROUS SULFATE (EC) 325 MG TAB PO ×2 (08:33→20:19)
[2018-05-29] MEDS: METOPROLOL 50 MG TAB PO ×2 (08:33→20:19)
[2018-05-29] MEDS: FISH OIL 1,000 MG CAP PO ×2 (08:33→20:16)
[2018-05-29] MEDS: ASPIRIN 81 MG TAB PO (08:34)
[2018-05-29] MEDS: DOCUSATE SODIUM 250 MG CAP PO (08:34)
[2018-05-29] MEDS: NIFEdipine (XL) 60 MG TAB PO ×2 (08:34→20:19)
[2018-05-29] MEDS: HYDROCORTISONE 1% 28 GM CR TOP (08:37)
[2018-05-29] MEDS: ENOXAPARIN 40 MG/0.4 ML SYG SC (10:31)
[2018-05-29 15:50] LABS: VANCOMYCIN,TROUGH 13.8 ug/ml (10.0-20.0)
[2018-05-30] MEDS: VANCOMYCIN 750 MG in SOD CHLORIDE 0.9% 150 ML IVPB ×2 (01:37→14:28)
[2018-05-30 04:54] LABS: ABNORMAL IP MESSAGE 1; HEMATOCRIT 23.3 % (42.0-52.0); HEMOGLOBIN 7.9 g/dl (14.0-18.0); MEAN CORPUSCULAR HEMOGLOBIN 24.8 pg (29.0-33.0); MEAN CORPUSCULAR HGB CONC 33.9 g/dl (32.0-37.0); MEAN PLATELET VOLUME 10.4 fl (7.4-10.4); PLATELET COUNT 556 10^3/UL (140-415); POSITIVE DIFF @See below; RED BLOOD COUNT 3.19 10^6/ul (4.70-6.10); RED CELL DISTRIBUTION WIDTH 14.5 % (11.5-14.5)
[2018-05-30 04:54] LABS: WHITE BLOOD COUNT 27.9 10^3/ul (4.8-10.8)
[2018-05-30 05:16] LABS: ADD MAN DIFF? YES
[2018-05-30 05:23] LABS: ANION GAP 10 (8-16); BLOOD UREA NITROGEN 31 mg/dl (7-20); CARBON DIOXIDE 26 mmol/L (21-31); CHLORIDE 105 mmol/L (97-110); CREATININE 1.46 mg/dl (0.61-1.24); GLUCOSE 101 mg/dl (70-220); MAGNESIUM 2.2 mg/dl (1.7-2.5); POTASSIUM 4.2 mmol/L (3.5-5.1); SODIUM 137 mmol/L (135-144)
[2018-05-30 07:39] LABS: ANISOCYTOSIS 1+ (0-0); BASOPHIL #M 0.5 10^3/ul (0.0-0.0); BASOPHILS % (M) 2 % (0-2); GIANT THROMBO% (M) 2 % (0-0); HYPOCHROMASIA 1+ (0-0); LYMPHOCYTES #M 0.8 10^3/ul (0.8-2.9); LYMPHOCYTES % (M) 3 % (15-51); MICROCYTOSIS 1+ (0-0); MONOCYTE #M 1.9 10^3/ul (0.3-0.9); MONOCYTES % (M) 7 % (0-11); PLATELET ESTIMATE INCREASED; POLYCHROMASIA 1+ (0-0); SEGMENTED NEUTROPHILS (M) % 88 % (39-77); SMUDGE%M 1 % (0-0); TARGET CELLS 2+ (0-0)
[2018-05-30] MEDS: LIDOCAINE 1% (MPF) 5 ML VIAL SC (09:00)
[2018-05-30] MEDS: DOCUSATE SODIUM 250 MG CAP PO (09:32)
[2018-05-30] MEDS: ASPIRIN 81 MG TAB PO (09:32)
[2018-05-30] MEDS: FISH OIL 1,000 MG CAP PO ×2 (09:33→21:04)
[2018-05-30] MEDS: FERROUS SULFATE (EC) 325 MG TAB PO ×2 (09:37→21:05)
[2018-05-30] MEDS: METOPROLOL 50 MG TAB PO ×2 (09:37→21:04)
[2018-05-30] MEDS: NIFEdipine (XL) 60 MG TAB PO (09:37)
[2018-05-30] MEDS: ENOXAPARIN 40 MG/0.4 ML SYG SC (09:45)
[2018-05-30] MEDS: LACTATED RINGER'S 500 ML IV (10:51)
[2018-05-30] MEDS: MEROPENEM 1 GM/50ML(PMX) 50 ML IVPB ×2 (10:52→21:03)
[2018-05-30] MEDS: ACETAMINOPHEN 500 MG TAB PO (14:35)
[2018-05-30] MEDS: CIPROFLOXACIN 250 MG TAB PO (18:08)
[2018-05-30] MEDS: hydrALAzine 20 MG INJ IV (18:09)
[2018-05-30 18:48] LABS: HEMOGLOBIN A1C 5.2 % (0-5.9)
[2018-05-30 18:59] LABS: CHOL/HDL RATIO 8.7 RATIO; HDL CHOLESTEROL 17 mg/dl (28-71); LDL CHOLESTEROL,CALCULATED 95 mg/dl; TRIGLYCERIDES 180 mg/dl (0-149)
[2018-05-30 18:59] LABS: CHOLESTEROL 148 mg/dl (100-200)
[2018-05-30 19:10] LABS: B-TYPE NATRIURETIC PEPTIDE 968 PG/ML (0-125)
[2018-05-30 19:11] LABS: TROPONIN-I 0.015 ng/ml (0.000-0.120)
[2018-05-30] MEDS: NIFEdipine (XL) 90 MG TAB PO (21:05)
[2018-05-30] MEDS: DOXAZOSIN 2 MG TAB PO (21:06)
[2018-05-30] MEDS: DOXAZOSIN 1 MG TAB PO (21:53)
[2018-05-31] MEDS: MAGNESIUM CITRATE 300 ML BTL PO (01:17)
[2018-05-31 01:21] LABS: ADD MAN DIFF? NO
[2018-05-31 01:26] LABS: BASOPHIL # 0.1 10^3/ul (0.0-0.1); BASOPHILS % 0.3 % (0.0-2.0); EOSINOPHILS # 0.1 10^3/ul (0.0-0.5); EOSINOPHILS % 0.4 % (0.0-7.0); HEMATOCRIT 21.5 % (42.0-52.0); HEMOGLOBIN 7.2 g/dl (14.0-18.0); LYMPHOCYTES % 9.2 % (15.0-51.0); MEAN CORPUSCULAR HEMOGLOBIN 24.7 pg (29.0-33.0); MEAN CORPUSCULAR HGB CONC 33.5 g/dl (32.0-37.0); MEAN CORPUSCULAR VOLUME 73.6 fl (82.0-101.0); MEAN PLATELET VOLUME 10.2 fl (7.4-10.4); MONOCYTE # 1.2 10^3/ul (0.3-0.9); MONOCYTES % 5.4 % (0.0-11.0); NEUTROPHIL # 18.2 10^3/ul (1.6-7.5); NEUTROPHILS % 82.6 % (39.0-77.0); PLATELET COUNT 522 10^3/UL (140-415); RED BLOOD COUNT 2.92 10^6/ul (4.70-6.10); RED CELL DISTRIBUTION WIDTH 14.6 % (11.5-14.5)
[2018-05-31 01:47] LABS: ANION GAP 11 (8-16); BLOOD UREA NITROGEN 29 mg/dl (7-20); CALCIUM 8.1 mg/dl (8.4-10.2); CARBON DIOXIDE 25 mmol/L (21-31); CHLORIDE 104 mmol/L (97-110); CREATININE 1.36 mg/dl (0.61-1.24); GLUCOSE 98 mg/dl (70-220); POTASSIUM 4.7 mmol/L (3.5-5.1); SODIUM 135 mmol/L (135-144)
[2018-05-31 01:57] LABS: TROPONIN-I 0.026 ng/ml (0.000-0.120)
[2018-05-31] MEDS: VANCOMYCIN 750 MG in SOD CHLORIDE 0.9% 150 ML IVPB ×2 (02:06→14:04)
[2018-05-31] MEDS: CIPROFLOXACIN 250 MG TAB PO ×2 (05:49→17:36)
[2018-05-31] MEDS: POLYETHYLENE GLYCOL 17 GM PACKET PO (05:49)
[2018-05-31] MEDS: MEROPENEM 1 GM/50ML(PMX) 50 ML IVPB ×2 (08:47→21:11)
[2018-05-31] MEDS: DOCUSATE SODIUM 250 MG CAP PO (08:47)
[2018-05-31] MEDS: ASPIRIN 81 MG TAB PO (08:47)
[2018-05-31] MEDS: FERROUS SULFATE (EC) 325 MG TAB PO ×2 (08:47→21:12)
[2018-05-31] MEDS: FISH OIL 1,000 MG CAP PO ×2 (08:47→21:11)
[2018-05-31] MEDS: NIFEdipine (XL) 90 MG TAB PO ×2 (08:48→21:12)
[2018-05-31] MEDS: METOPROLOL 50 MG TAB PO ×2 (08:49→21:13)
[2018-05-31] MEDS: ENOXAPARIN 40 MG/0.4 ML SYG SC (08:54)
[2018-05-31] MEDS: LACTATED RINGER'S 500 ML IV (12:19)
[2018-05-31 19:30] LABS: TROPONIN-I < 0.012 ng/ml (0.000-0.120)
[2018-05-31] MEDS: DOXAZOSIN 2 MG TAB PO (21:12)
[2018-06-01 01:02] LABS: ADD MAN DIFF? NO
[2018-06-01 01:11] LABS: BASOPHIL # 0.1 10^3/ul (0.0-0.1); BASOPHILS % 0.3 % (0.0-2.0); EOSINOPHILS # 0.1 10^3/ul (0.0-0.5); EOSINOPHILS % 0.4 % (0.0-7.0); HEMATOCRIT 21.1 % (42.0-52.0); LYMPHOCYTES # 1.9 10^3/ul (0.8-2.9); LYMPHOCYTES % 9.1 % (15.0-51.0); MEAN CORPUSCULAR HEMOGLOBIN 24.9 pg (29.0-33.0); MEAN CORPUSCULAR HGB CONC 33.2 g/dl (32.0-37.0); MEAN CORPUSCULAR VOLUME 75.1 fl (82.0-101.0); MEAN PLATELET VOLUME 10.6 fl (7.4-10.4); MONOCYTE # 1.2 10^3/ul (0.3-0.9); MONOCYTES % 5.7 % (0.0-11.0); NEUTROPHIL # 17.6 10^3/ul (1.6-7.5); NEUTROPHILS % 83.1 % (39.0-77.0); PLATELET COUNT 557 10^3/UL (140-415); RED BLOOD COUNT 2.81 10^6/ul (4.70-6.10); RED CELL DISTRIBUTION WIDTH 14.6 % (11.5-14.5)
[2018-06-01 01:11] LABS: WHITE BLOOD COUNT 21.1 10^3/ul (4.8-10.8)
[2018-06-01 01:22] LABS: MAGNESIUM 2.1 mg/dl (1.7-2.5)
[2018-06-01 01:24] LABS: ALANINE AMINOTRANSFERASE 49 IU/L (13-69); ALBUMIN 2.1 g/dl (3.3-4.9); ALBUMIN/GLOBULIN RATIO 0.58; ALKALINE PHOSPHATASE 109 IU/L (42-121); ANION GAP 10 (8-16); ASPARTATE AMINO TRANSFERASE 35 IU/L (15-46); BILIRUBIN,INDIRECT 0.4 mg/dl (0-1.1); BILIRUBIN,TOTAL 0.4 mg/dl (0.2-1.3); BLOOD UREA NITROGEN 27 mg/dl (7-20); CARBON DIOXIDE 26 mmol/L (21-31); CHLORIDE 103 mmol/L (97-110); CREATININE 1.51 mg/dl (0.61-1.24); GLUCOSE 97 mg/dl (70-220); POTASSIUM 4.8 mmol/L (3.5-5.1); SODIUM 134 mmol/L (135-144); TOTAL PROTEIN 5.7 g/dl (6.1-8.1)
[2018-06-01 01:35] LABS: TROPONIN-I 0.017 ng/ml (0.000-0.120)
[2018-06-01 02:08] LABS: ERYTHROCYTE SEDIMENTATION RATE 115 mm/Hr (0-20)
[2018-06-01] MEDS: VANCOMYCIN 750 MG in SOD CHLORIDE 0.9% 150 ML IVPB ×2 (02:42→14:28)
[2018-06-01] MEDS: CIPROFLOXACIN 250 MG TAB PO (06:51)
[2018-06-01] MEDS: MEROPENEM 1 GM/50ML(PMX) 50 ML IVPB ×2 (10:07→20:45)
[2018-06-01] MEDS: FISH OIL 1,000 MG CAP PO ×2 (10:11→20:46)
[2018-06-01] MEDS: NIFEdipine (XL) 90 MG TAB PO (10:12)
[2018-06-01] MEDS: METOPROLOL 50 MG TAB PO ×2 (10:12→20:50)
[2018-06-01] MEDS: DOCUSATE SODIUM 250 MG CAP PO (10:13)
[2018-06-01] MEDS: ASPIRIN 81 MG TAB PO (10:13)
[2018-06-01] MEDS: FERROUS SULFATE (EC) 325 MG TAB PO ×2 (10:13→20:51)
[2018-06-01] MEDS: ENOXAPARIN 40 MG/0.4 ML SYG SC (10:16)
[2018-06-01 13:46] LABS: VANCOMYCIN,TROUGH 14.5 ug/ml (10.0-20.0)
[2018-06-01] MEDS: NEOMYC/POLYMYX/BACIT 30 GM OINT TOP ×2 (14:35→20:46)
[2018-06-01] MEDS: LIDOCAINE 1% (MPF) 5 ML VIAL SC (16:30)
[2018-06-01] MEDS: SOD FERRIC GLUC COMPLX 125 MG in SOD CHLORIDE 0.9% 100 ML IVPB (18:20)
[2018-06-01] MEDS: NIFEdipine (XL) 60 MG TAB PO (20:49)
[2018-06-01] MEDS: DOXAZOSIN 2 MG TAB PO (20:50)
[2018-06-01 22:35] LABS: IMMEDIATE SPIN CROSSMATCH 1 1
[2018-06-02] MEDS: VANCOMYCIN 750 MG in SOD CHLORIDE 0.9% 150 ML IVPB ×2 (03:00→13:42)
[2018-06-02] MEDS: morphine 4 MG/ML VIAL IV (04:47)
[2018-06-02] MEDS: MEROPENEM 1 GM/50ML(PMX) 50 ML IVPB ×2 (09:13→21:55)
[2018-06-02] MEDS: DOCUSATE SODIUM 250 MG CAP PO (09:15)
[2018-06-02] MEDS: NIFEdipine (XL) 60 MG TAB PO ×2 (09:17→21:56)
[2018-06-02] MEDS: METOPROLOL 50 MG TAB PO ×2 (09:17→21:57)
[2018-06-02] MEDS: FISH OIL 1,000 MG CAP PO ×2 (09:17→21:54)
[2018-06-02] MEDS: NEOMYC/POLYMYX/BACIT 30 GM OINT TOP ×2 (09:18→21:57)
[2018-06-02] MEDS: ASPIRIN 81 MG TAB PO (09:18)
[2018-06-02] MEDS: FERROUS SULFATE (EC) 325 MG TAB PO ×2 (09:18→21:56)
[2018-06-02] MEDS: ENOXAPARIN 40 MG/0.4 ML SYG SC (09:22)
[2018-06-02 12:32] LABS: ADD MAN DIFF? NO
[2018-06-02 12:38] LABS: BASOPHIL # 0.1 10^3/ul (0.0-0.1); BASOPHILS % 0.5 % (0.0-2.0); EOSINOPHILS # 0.1 10^3/ul (0.0-0.5); EOSINOPHILS % 0.6 % (0.0-7.0); HEMATOCRIT 23.8 % (42.0-52.0); HEMOGLOBIN 7.8 g/dl (14.0-18.0); LYMPHOCYTES # 1.6 10^3/ul (0.8-2.9); LYMPHOCYTES % 8.1 % (15.0-51.0); MEAN CORPUSCULAR HEMOGLOBIN 25.2 pg (29.0-33.0); MEAN CORPUSCULAR HGB CONC 32.8 g/dl (32.0-37.0); MEAN PLATELET VOLUME 10.3 fl (7.4-10.4); NEUTROPHIL # 17.1 10^3/ul (1.6-7.5); PLATELET COUNT 557 10^3/UL (140-415); RED BLOOD COUNT 3.09 10^6/ul (4.70-6.10); RED CELL DISTRIBUTION WIDTH 14.9 % (11.5-14.5)
[2018-06-02 12:38] LABS: WHITE BLOOD COUNT 20.1 10^3/ul (4.8-10.8)
[2018-06-02 14:36] LABS: NIL 0.01 IU/mL; QUANTIFERON(R)-TB GOLD INDETERMINATE (NEGATIVE)
[2018-06-02 15:21] LABS: C-REACTIVE PROTEIN 14.1 mg/dl (0.0-0.9)
[2018-06-02] MEDS: SOD CHLORIDE 0.9% 1,000 ML IV (17:54)
[2018-06-02] MEDS: SOD FERRIC GLUC COMPLX 125 MG in SOD CHLORIDE 0.9% 100 ML IVPB (17:54)
[2018-06-02] MEDS: DOXAZOSIN 4 MG TAB PO (21:55)
[2018-06-03] MEDS: VANCOMYCIN 750 MG in SOD CHLORIDE 0.9% 150 ML IVPB ×2 (02:15→14:37)
[2018-06-03 04:53] LABS: ADD MAN DIFF? NO
[2018-06-03 05:12] LABS: WHITE BLOOD COUNT 17.2 10^3/ul (4.8-10.8)
[2018-06-03 05:12] LABS: BASOPHIL # 0.1 10^3/ul (0.0-0.1); BASOPHILS % 0.7 % (0.0-2.0); EOSINOPHILS # 0.1 10^3/ul (0.0-0.5); EOSINOPHILS % 0.6 % (0.0-7.0); HEMATOCRIT 24.8 % (42.0-52.0); HEMOGLOBIN 8.1 g/dl (14.0-18.0); LYMPHOCYTES # 1.6 10^3/ul (0.8-2.9); LYMPHOCYTES % 9.6 % (15.0-51.0); MEAN CORPUSCULAR HEMOGLOBIN 25.1 pg (29.0-33.0); MEAN CORPUSCULAR HGB CONC 32.7 g/dl (32.0-37.0); MEAN CORPUSCULAR VOLUME 76.8 fl (82.0-101.0); MEAN PLATELET VOLUME 10.5 fl (7.4-10.4); MONOCYTE # 0.9 10^3/ul (0.3-0.9); MONOCYTES % 5.2 % (0.0-11.0); NEUTROPHIL # 14.3 10^3/ul (1.6-7.5); NEUTROPHILS % 83.3 % (39.0-77.0); PLATELET COUNT 554 10^3/UL (140-415); RED BLOOD COUNT 3.23 10^6/ul (4.70-6.10); RED CELL DISTRIBUTION WIDTH 14.9 % (11.5-14.5)
[2018-06-03 05:56] LABS: ANION GAP 10 (8-16); BLOOD UREA NITROGEN 25 mg/dl (7-20); CALCIUM 8.7 mg/dl (8.4-10.2); CARBON DIOXIDE 29 mmol/L (21-31); CHLORIDE 102 mmol/L (97-110); CREATININE 1.52 mg/dl (0.61-1.24); GLUCOSE 83 mg/dl (70-220); PHOSPHORUS 5.6 mg/dl (2.5-4.9); POTASSIUM 4.6 mmol/L (3.5-5.1); SODIUM 136 mmol/L (135-144)
[2018-06-03] MEDS: MEROPENEM 1 GM/50ML(PMX) 50 ML IVPB ×2 (09:25→21:00)
[2018-06-03] MEDS: ASPIRIN 81 MG TAB PO (09:26)
[2018-06-03] MEDS: FISH OIL 1,000 MG CAP PO ×2 (09:26→20:57)
[2018-06-03] MEDS: ACETAMINOPHEN 500 MG TAB PO (09:26)
[2018-06-03] MEDS: METOPROLOL 50 MG TAB PO ×2 (09:27→20:58)
[2018-06-03] MEDS: DOCUSATE SODIUM 250 MG CAP PO (09:27)
[2018-06-03] MEDS: FERROUS SULFATE (EC) 325 MG TAB PO ×2 (09:27→20:58)
[2018-06-03] MEDS: NIFEdipine (XL) 60 MG TAB PO ×2 (09:27→20:58)
[2018-06-03] MEDS: NEOMYC/POLYMYX/BACIT 30 GM OINT TOP ×2 (09:30→22:12)
[2018-06-03] MEDS: ENOXAPARIN 40 MG/0.4 ML SYG SC (09:30)
[2018-06-03] MEDS: SOD FERRIC GLUC COMPLX 125 MG in SOD CHLORIDE 0.9% 100 ML IVPB (18:15)
[2018-06-03] MEDS: DOXAZOSIN 4 MG TAB PO (20:58)
[2018-06-04] MEDS: VANCOMYCIN 750 MG in SOD CHLORIDE 0.9% 150 ML IVPB (02:16)
[2018-06-04] MEDS: FERROUS SULFATE (EC) 325 MG TAB PO ×2 (09:05→21:04)
[2018-06-04] MEDS: NIFEdipine (XL) 60 MG TAB PO ×2 (09:05→21:04)
[2018-06-04] MEDS: FISH OIL 1,000 MG CAP PO ×2 (09:05→21:04)
[2018-06-04] MEDS: ASPIRIN 81 MG TAB PO (09:06)
[2018-06-04] MEDS: DOCUSATE SODIUM 250 MG CAP PO (09:06)
[2018-06-04] MEDS: NEOMYC/POLYMYX/BACIT 30 GM OINT TOP ×2 (09:07→21:05)
[2018-06-04] MEDS: MEROPENEM 1 GM/50ML(PMX) 50 ML IVPB (09:07)
[2018-06-04] MEDS: METOPROLOL 50 MG TAB PO (09:07)
[2018-06-04] MEDS: ENOXAPARIN 40 MG/0.4 ML SYG SC (09:16)
[2018-06-04 10:38] LABS: ADD MAN DIFF? NO
[2018-06-04 10:47] LABS: BASOPHIL # 0.2 10^3/ul (0.0-0.1); BASOPHILS % 1.1 % (0.0-2.0); EOSINOPHILS # 0.1 10^3/ul (0.0-0.5); EOSINOPHILS % 0.6 % (0.0-7.0); HEMATOCRIT 24.7 % (42.0-52.0); HEMOGLOBIN 8.1 g/dl (14.0-18.0); LYMPHOCYTES # 1.4 10^3/ul (0.8-2.9); LYMPHOCYTES % 9.8 % (15.0-51.0); MEAN CORPUSCULAR HEMOGLOBIN 25.3 pg (29.0-33.0); MEAN CORPUSCULAR HGB CONC 32.8 g/dl (32.0-37.0); MEAN CORPUSCULAR VOLUME 77.2 fl (82.0-101.0); MEAN PLATELET VOLUME 10.8 fl (7.4-10.4); MONOCYTE # 0.7 10^3/ul (0.3-0.9); MONOCYTES % 5.1 % (0.0-11.0); NEUTROPHIL # 11.7 10^3/ul (1.6-7.5); PLATELET COUNT 541 10^3/UL (140-415); RED CELL DISTRIBUTION WIDTH 14.8 % (11.5-14.5)
[2018-06-04 10:47] LABS: WHITE BLOOD COUNT 14.1 10^3/ul (4.8-10.8)
[2018-06-04] MEDS: CEFTRIAXONE 2 GM/50 ML (PMX) 50 ML IVPB (13:33)
[2018-06-04] MEDS: SOD FERRIC GLUC COMPLX 125 MG in SOD CHLORIDE 0.9% 100 ML IVPB (18:17)
[2018-06-04] MEDS: BETHANECHOL 10 MG TAB PO (21:01)
[2018-06-04] MEDS: DOXAZOSIN 4 MG TAB PO (21:04)
[2018-06-04] MEDS: SOD CHLORIDE 0.9% 1,000 ML IV (23:30)
[2018-06-05] MEDS: CEFTRIAXONE 2 GM/50 ML (PMX) 50 ML IVPB ×2 (01:50→15:40)
[2018-06-05 05:38] LABS: ADD MAN DIFF? NO
[2018-06-05 05:43] LABS: WHITE BLOOD COUNT 11.1 10^3/ul (4.8-10.8)
[2018-06-05 05:43] LABS: BASOPHIL # 0.1 10^3/ul (0.0-0.1); BASOPHILS % 1.1 % (0.0-2.0); EOSINOPHILS # 0.1 10^3/ul (0.0-0.5); EOSINOPHILS % 0.7 % (0.0-7.0); HEMATOCRIT 24.7 % (42.0-52.0); HEMOGLOBIN 8.1 g/dl (14.0-18.0); LYMPHOCYTES # 1.3 10^3/ul (0.8-2.9); LYMPHOCYTES % 11.6 % (15.0-51.0); MEAN CORPUSCULAR HGB CONC 32.8 g/dl (32.0-37.0); MEAN CORPUSCULAR VOLUME 76.2 fl (82.0-101.0); MEAN PLATELET VOLUME 10.2 fl (7.4-10.4); MONOCYTE # 0.6 10^3/ul (0.3-0.9); MONOCYTES % 5.8 % (0.0-11.0); NEUTROPHIL # 8.9 10^3/ul (1.6-7.5); NEUTROPHILS % 80.5 % (39.0-77.0); PLATELET COUNT 519 10^3/UL (140-415); RED BLOOD COUNT 3.24 10^6/ul (4.70-6.10); RED CELL DISTRIBUTION WIDTH 14.6 % (11.5-14.5)
[2018-06-05 08:03] LABS: BLOOD UREA NITROGEN 28 mg/dl (7-20); CALCIUM 8.7 mg/dl (8.4-10.2); CARBON DIOXIDE 26 mmol/L (21-31); CREATININE 1.29 mg/dl (0.61-1.24); GLUCOSE 93 mg/dl (70-220); MAGNESIUM 1.9 mg/dl (1.7-2.5); PHOSPHORUS 5.3 mg/dl (2.5-4.9); POTASSIUM 4.3 mmol/L (3.5-5.1); SODIUM 135 mmol/L (135-144)
[2018-06-05] MEDS: SOD CHLORIDE 0.9% 1,000 ML IV (08:18)
[2018-06-05 08:34] LABS: ANION GAP 11 (8-16); CHLORIDE 102 mmol/L (97-110)
[2018-06-05] MEDS: NIFEdipine (XL) 60 MG TAB PO ×2 (08:57→20:59)
[2018-06-05] MEDS: FERROUS SULFATE (EC) 325 MG TAB PO ×2 (08:58→20:59)
[2018-06-05] MEDS: FISH OIL 1,000 MG CAP PO ×2 (08:58→20:57)
[2018-06-05] MEDS: BETHANECHOL 10 MG TAB PO ×3 (08:58→21:00)
[2018-06-05] MEDS: DOCUSATE SODIUM 250 MG CAP PO (08:59)
[2018-06-05] MEDS: NEOMYC/POLYMYX/BACIT 30 GM OINT TOP ×2 (08:59→21:00)
[2018-06-05] MEDS: ASPIRIN 81 MG TAB PO (09:00)
[2018-06-05] MEDS: ENOXAPARIN 40 MG/0.4 ML SYG SC (09:00)
[2018-06-05] MEDS ORDERED: ALTEPLASE (CATHFLO) 2 MG INJ CATHETER (10:30)
[2018-06-05] MEDS: LIDOCAINE 1% (MPF) 5 ML VIAL (12:48)
[2018-06-05 15:13] LABS: RAPID PLASMA REAGIN NONREACTIVE (NR)
[2018-06-05] MEDS: SOD FERRIC GLUC COMPLX 125 MG in SOD CHLORIDE 0.9% 100 ML IVPB (17:35)
[2018-06-05] MEDS: DOXAZOSIN 4 MG TAB PO (20:58)
[2018-06-06] MEDS: CEFTRIAXONE 2 GM/50 ML (PMX) 50 ML IVPB ×2 (01:09→13:42)
[2018-06-06 05:14] LABS: ADD MAN DIFF? NO
[2018-06-06 05:24] LABS: BASOPHIL # 0.1 10^3/ul (0.0-0.1); EOSINOPHILS # 0.1 10^3/ul (0.0-0.5); EOSINOPHILS % 1.3 % (0.0-7.0); HEMATOCRIT 24.4 % (42.0-52.0); LYMPHOCYTES # 1.5 10^3/ul (0.8-2.9); LYMPHOCYTES % 16.2 % (15.0-51.0); MEAN CORPUSCULAR HEMOGLOBIN 25.2 pg (29.0-33.0); MEAN CORPUSCULAR HGB CONC 32.8 g/dl (32.0-37.0); MEAN PLATELET VOLUME 9.9 fl (7.4-10.4); MONOCYTE # 0.6 10^3/ul (0.3-0.9); MONOCYTES % 7.2 % (0.0-11.0); NEUTROPHIL # 6.6 10^3/ul (1.6-7.5); NEUTROPHILS % 73.9 % (39.0-77.0); PLATELET COUNT 538 10^3/UL (140-415); RED BLOOD COUNT 3.17 10^6/ul (4.70-6.10); RED CELL DISTRIBUTION WIDTH 14.6 % (11.5-14.5)
[2018-06-06 05:53] LABS: ANION GAP 12 (8-16); BLOOD UREA NITROGEN 24 mg/dl (7-20); CALCIUM 8.6 mg/dl (8.4-10.2); CARBON DIOXIDE 27 mmol/L (21-31); CHLORIDE 103 mmol/L (97-110); CREATININE 1.35 mg/dl (0.61-1.24); GLUCOSE 90 mg/dl (70-220); MAGNESIUM 1.9 mg/dl (1.7-2.5); POTASSIUM 3.9 mmol/L (3.5-5.1); SODIUM 138 mmol/L (135-144)
[2018-06-06] MEDS: DOCUSATE SODIUM 250 MG CAP PO (08:20)
[2018-06-06] MEDS: FISH OIL 1,000 MG CAP PO ×2 (08:20→21:16)
[2018-06-06] MEDS: BETHANECHOL 10 MG TAB PO (08:21)
[2018-06-06] MEDS: ASPIRIN 81 MG TAB PO (08:21)
[2018-06-06] MEDS: FERROUS SULFATE (EC) 325 MG TAB PO ×2 (08:21→21:15)
[2018-06-06] MEDS: NIFEdipine (XL) 60 MG TAB PO (08:22)
[2018-06-06] MEDS: ENOXAPARIN 40 MG/0.4 ML SYG SC (08:25)
[2018-06-06] MEDS: NEOMYC/POLYMYX/BACIT 30 GM OINT TOP ×2 (08:32→21:00)
[2018-06-06] MEDS: LISINOPRIL 10 MG TAB PO (10:13)
[2018-06-06] MEDS: BETHANECHOL 25 MG TAB PO ×2 (13:51→21:18)
[2018-06-06] MEDS: SOD CHLORIDE 0.9% 1,000 ML IV ×2 (15:30→18:43)
[2018-06-06] MEDS: ASCORBIC ACID 500 MG TAB PO (21:15)
[2018-06-06] MEDS: DOXAZOSIN 4 MG TAB PO (21:18)
[2018-06-07] MEDS: ALTEPLASE (CATHFLO) 2 MG INJ CATHETER (01:22)
[2018-06-07] MEDS: CEFTRIAXONE 2 GM/50 ML (PMX) 50 ML IVPB ×2 (01:23→13:54)
[2018-06-07 04:56] LABS: ADD MAN DIFF? NO
[2018-06-07 05:11] LABS: WHITE BLOOD COUNT 7.5 10^3/ul (4.8-10.8)
[2018-06-07 05:11] LABS: BASOPHIL # 0.1 10^3/ul (0.0-0.1); BASOPHILS % 1.3 % (0.0-2.0); EOSINOPHILS # 0.1 10^3/ul (0.0-0.5); EOSINOPHILS % 1.3 % (0.0-7.0); HEMATOCRIT 24.5 % (42.0-52.0); HEMOGLOBIN 7.8 g/dl (14.0-18.0); LYMPHOCYTES # 1.6 10^3/ul (0.8-2.9); LYMPHOCYTES % 20.9 % (15.0-51.0); MEAN CORPUSCULAR HEMOGLOBIN 24.8 pg (29.0-33.0); MEAN CORPUSCULAR HGB CONC 31.8 g/dl (32.0-37.0); MEAN CORPUSCULAR VOLUME 77.8 fl (82.0-101.0); MEAN PLATELET VOLUME 10.2 fl (7.4-10.4); MONOCYTE # 0.7 10^3/ul (0.3-0.9); NEUTROPHILS % 67.1 % (39.0-77.0); PLATELET COUNT 463 10^3/UL (140-415); RED BLOOD COUNT 3.15 10^6/ul (4.70-6.10); RED CELL DISTRIBUTION WIDTH 14.6 % (11.5-14.5)
[2018-06-07 05:38] LABS: ANION GAP 11 (8-16); BLOOD UREA NITROGEN 27 mg/dl (7-20); CALCIUM 8.5 mg/dl (8.4-10.2); CARBON DIOXIDE 27 mmol/L (21-31); CHLORIDE 105 mmol/L (97-110); CREATININE 1.37 mg/dl (0.61-1.24); GLUCOSE 87 mg/dl (70-220); POTASSIUM 3.9 mmol/L (3.5-5.1); SODIUM 139 mmol/L (135-144)
[2018-06-07 07:08] LABS: ERYTHROCYTE SEDIMENTATION RATE 110 mm/Hr (0-20)
[2018-06-07] MEDS: DOCUSATE SODIUM 250 MG CAP PO (08:44)
[2018-06-07] MEDS: ASPIRIN 81 MG TAB PO (08:44)
[2018-06-07] MEDS: ASCORBIC ACID 500 MG TAB PO ×2 (08:45→21:00)
[2018-06-07] MEDS: FERROUS SULFATE (EC) 325 MG TAB PO ×2 (08:45→21:00)
[2018-06-07] MEDS: NIFEdipine (XL) 90 MG TAB PO (08:46)
[2018-06-07] MEDS: FISH OIL 1,000 MG CAP PO ×2 (08:46→21:00)
[2018-06-07] MEDS: LISINOPRIL 10 MG TAB PO (08:46)
[2018-06-07] MEDS: ENOXAPARIN 40 MG/0.4 ML SYG SC (08:50)
[2018-06-07] MEDS: BETHANECHOL 25 MG TAB PO ×3 (09:00→21:00)
[2018-06-07] MEDS: NEOMYC/POLYMYX/BACIT 30 GM OINT TOP ×2 (09:00→21:00)
[2018-06-07 13:10] LABS: ADD UMIC NO; UR ASCORBIC ACID NEGATIVE (NEGATIVE); UR BILIRUBIN (Dip) NEGATIVE (NEGATIVE); UR BLOOD (Dip) NEGATIVE (NEGATIVE); UR CLARITY CLEAR (CLEAR); UR COLOR YELLOW (YELLOW); UR GLUCOSE (Dip) NEGATIVE (NEGATIVE); UR KETONES (Dip) NEGATIVE (NEGATIVE); UR LEUKOCYTE ESTERASE (Dip) NEGATIVE Leu/ul (NEGATIVE); UR NITRITE (Dip) NEGATIVE (NEGATIVE); UR SPECIFIC GRAVITY (Dip) 1.013 (1.003-1.030); UR TOTAL PROTEIN (Dip) NEGATIVE (NEGATIVE); UR UROBILINOGEN (Dip) NEGATIVE (NEGATIVE)
[2018-06-07 15:11] LABS: INR 1.11; PROTIME 14.5 Sec (11.9-14.9); PT RATIO 1.1
[2018-06-07 15:12] LABS: PARTIAL THROMBOPLASTIN TIME 37.4 Sec (23.0-35.0)
[2018-06-07] MEDS: hydrALAzine 20 MG INJ IV ×2 (17:34→17:41)
[2018-06-07] MEDS ORDERED: SEVOFLURANE 15 MIN (18:00)
[2018-06-07] MEDS ORDERED: MIDAZOLAM 1 MG/ML 2 ML INJ (18:05)
[2018-06-07] MEDS: LIDOCAINE 0.5% (MDV) 50 ML INJ (19:00)
[2018-06-07] MEDS ORDERED: PHENYLephrine (100 MCG/ML) 5ML SYG (19:10)
[2018-06-07] MEDS ORDERED: EPHEDrine SULFATE 50 MG/5 ML SYG (19:12)
[2018-06-07] MEDS ORDERED: LIDOCAINE 2% (SDV) 5 ML INJ (19:21)
[2018-06-07] MEDS ORDERED: ALBUMIN HUMAN 5% 250 ML (19:21)
[2018-06-07] MEDS ORDERED: SUCCINYLCHOLINE CHLORIDE 100 MG/5 ML SYG IV (19:21)
[2018-06-07] MEDS ORDERED: PROPOFOL 20 ML (19:21)
[2018-06-07] MEDS ORDERED: VASOPRESSIN 20 UNITS INJ (19:21)
[2018-06-07] MEDS: GELATIN SIZE 100 SPONGE (20:59)
[2018-06-07] MEDS: BUPIVACAINE 0.25%/EPI (MDV) 50 ML VIAL INJ (20:59)
[2018-06-07] MEDS: POLYMYXIN/BACITRACIN 1L IRRIG (21:00)
[2018-06-07] MEDS: DOXAZOSIN 4 MG TAB PO (21:00)
[2018-06-07] MEDS: THROMBIN 5000 UNIT VIAL ×2 (21:01)
[2018-06-07 21:34] LABS: IMMEDIATE SPIN CROSSMATCH 1
[2018-06-07 23:18] LABS: IMMEDIATE SPIN CROSSMATCH 1 8
[2018-06-07] MEDS ORDERED: THROMBIN 5000 UNIT VIAL (23:27)
[2018-06-07 23:45] LABS: ADD MAN DIFF? NO
[2018-06-07 23:46] LABS: WHITE BLOOD COUNT 9.7 10^3/ul (4.8-10.8)
[2018-06-07 23:46] LABS: BASOPHIL # 0.1 10^3/ul (0.0-0.1); BASOPHILS % 0.9 % (0.0-2.0); EOSINOPHILS # 0.1 10^3/ul (0.0-0.5); EOSINOPHILS % 0.9 % (0.0-7.0); HEMATOCRIT 27.4 % (42.0-52.0); LYMPHOCYTES # 1.3 10^3/ul (0.8-2.9); LYMPHOCYTES % 13.5 % (15.0-51.0); MEAN CORPUSCULAR HEMOGLOBIN 26.1 pg (29.0-33.0); MEAN CORPUSCULAR HGB CONC 32.8 g/dl (32.0-37.0); MEAN CORPUSCULAR VOLUME 79.4 fl (82.0-101.0); MEAN PLATELET VOLUME 9.2 fl (7.4-10.4); MONOCYTE # 0.7 10^3/ul (0.3-0.9); MONOCYTES % 7.3 % (0.0-11.0); NEUTROPHIL # 7.4 10^3/ul (1.6-7.5); NEUTROPHILS % 76.9 % (39.0-77.0); PLATELET COUNT 317 10^3/UL (140-415); RED BLOOD COUNT 3.45 10^6/ul (4.70-6.10); RED CELL DISTRIBUTION WIDTH 14.6 % (11.5-14.5)
[2018-06-08 00:10] LABS: INR 1.19; PARTIAL THROMBOPLASTIN TIME 30.1 Sec (23.0-35.0); PROTIME 15.3 Sec (11.9-14.9); PT RATIO 1.2
[2018-06-08] MEDS ORDERED: THROMBIN 5000 UNIT VIAL (00:44)
[2018-06-08] MEDS ORDERED: CEFAZOLIN 1 GM INJ (01:00)
[2018-06-08] MEDS ORDERED: GELATIN SIZE 100 SPONGE (01:08)
[2018-06-08] MEDS ORDERED: VASOPRESSIN 20 UNITS INJ (01:35)
[2018-06-08] MEDS ORDERED: HYDROmorphONE 2 MG/ML SYG (01:38)
[2018-06-08] MEDS ORDERED: NEOMYC/POLYMYX/BACIT 30 GM OINT (02:18)
[2018-06-08] MEDS ORDERED: NALOXONE (0.4 MG/ML) INJ IV (03:30)
[2018-06-08] MEDS ORDERED: HYDROmorphONE 0.5 MG/0.5 ML SYG IV ×2 (03:30)
[2018-06-08] MEDS ORDERED: EPHEDrine SULFATE 50 MG/5 ML SYG IV (03:30)
[2018-06-08] MEDS ORDERED: FENTAnyl 50 MCG/ML VIAL IV ×3 (03:30)
[2018-06-08] MEDS ORDERED: ONDANSETRON 4 MG INJ IV (03:30)
[2018-06-08] MEDS ORDERED: LABETALOL HCL 20MG INJ IV (03:30)
[2018-06-08] MEDS ORDERED: DIPHENHYDRAMINE 50 MG INJ IV (03:30)
[2018-06-08] MEDS ORDERED: hydrALAzine 20 MG INJ IV (03:30)
[2018-06-08] MEDS ORDERED: MEPERIDINE 25 MG INJ IV (03:30)
[2018-06-08] MEDS: PROPOFOL 100 ML IV (03:43)
[2018-06-08] MEDS: HYDROmorphONE 0.5 MG/0.5 ML SYG IV (04:00)
[2018-06-08 04:55] LABS: AADO2 Arterial 276.3 mmHg (7.0-24.0); Arterial Base Excess -4.4 mmol/L (-3.0-3); Arterial Blood Gas Oxygen Sat 99.5 mmHG (95.0-98.0); Arterial COHb 0.5 % (0.0-3.0); Arterial Fraction of Oxyhgb 98.5 % (93.0-99.0); Arterial HCO3 20.8 mmol/L (22.0-26.0); Arterial MetHb 0.5 % (0.0-1.5); Arterial Total Hemglobin 11.3 g/dl (12.0-18.0); Arterial pCO2 38.7 mmhg (35-45); MODE VENT - AC; Site A-Line
[2018-06-08] MEDS: CEFTRIAXONE 2 GM/50 ML (PMX) 50 ML IVPB ×2 (05:09→14:42)
[2018-06-08] MEDS: 1/2 NS + KCL 20 MEQ 1,000 ML IV ×2 (05:12→13:40)
[2018-06-08 05:31] LABS: ADD MAN DIFF? NO
[2018-06-08 05:56] LABS: BASOPHIL # 0.1 10^3/ul (0.0-0.1); BASOPHILS % 0.4 % (0.0-2.0); EOSINOPHILS % 0.3 % (0.0-7.0); HEMATOCRIT 30.9 % (42.0-52.0); HEMOGLOBIN 10.3 g/dl (14.0-18.0); LYMPHOCYTES # 1.3 10^3/ul (0.8-2.9); LYMPHOCYTES % 8.9 % (15.0-51.0); MEAN CORPUSCULAR HEMOGLOBIN 26.5 pg (29.0-33.0); MEAN CORPUSCULAR HGB CONC 33.3 g/dl (32.0-37.0); MEAN CORPUSCULAR VOLUME 79.4 fl (82.0-101.0); MEAN PLATELET VOLUME 9.9 fl (7.4-10.4); MONOCYTE # 0.7 10^3/ul (0.3-0.9); NEUTROPHIL # 12.7 10^3/ul (1.6-7.5); NEUTROPHILS % 84.8 % (39.0-77.0); PLATELET COUNT 329 10^3/UL (140-415); RED BLOOD COUNT 3.89 10^6/ul (4.70-6.10); RED CELL DISTRIBUTION WIDTH 14.8 % (11.5-14.5)
[2018-06-08 05:56] LABS: WHITE BLOOD COUNT 14.9 10^3/ul (4.8-10.8)
[2018-06-08 06:29] LABS: ANION GAP 12 (8-16); BLOOD UREA NITROGEN 31 mg/dl (7-20); CALCIUM 7.8 mg/dl (8.4-10.2); CARBON DIOXIDE 23 mmol/L (21-31); CHLORIDE 108 mmol/L (97-110); CREATININE 1.68 mg/dl (0.61-1.24); GLUCOSE 101 mg/dl (70-220); POTASSIUM 4.5 mmol/L (3.5-5.1); SODIUM 138 mmol/L (135-144)
[2018-06-08] MEDS ORDERED: HYDROCODONE/APAP (10/325) TAB PO ×2 (09:30→15:30)
[2018-06-08] MEDS: HYDROmorphONE 1 MG/ML SYG IV ×3 (09:47→17:54)
[2018-06-08] MEDS: ASPIRIN 81 MG TAB PO (10:00)
[2018-06-08] MEDS: DOCUSATE SODIUM 250 MG CAP PO (10:00)
[2018-06-08] MEDS: FERROUS SULFATE (EC) 325 MG TAB PO ×2 (10:01→21:00)
[2018-06-08] MEDS: FISH OIL 1,000 MG CAP PO ×2 (10:01→21:00)
[2018-06-08] MEDS: BETHANECHOL 25 MG TAB PO ×3 (10:02→21:01)
[2018-06-08] MEDS: ASCORBIC ACID 500 MG TAB PO ×2 (10:02→21:01)
[2018-06-08] MEDS: NIFEdipine (XL) 90 MG TAB PO (10:02)
[2018-06-08] MEDS: LISINOPRIL 10 MG TAB PO (10:03)
[2018-06-08] MEDS: ENOXAPARIN 40 MG/0.4 ML SYG SC (10:09)
[2018-06-08] MEDS: NEOMYC/POLYMYX/BACIT 30 GM OINT TOP ×2 (10:09→21:08)
[2018-06-08] MEDS: CYCLOBENZAPRINE 10 MG TAB PO ×2 (13:39→21:00)
[2018-06-08] MEDS: ACETAMINOPHEN 1000MG/100ML IV 100 ML IVPB ×2 (14:42→20:58)
[2018-06-08] MEDS: oxyCODONE 5 MG TAB PO (15:21)
[2018-06-08] MEDS: DOXAZOSIN 4 MG TAB PO (21:02)
[2018-06-08 23:18] LABS: VITAMIN B1 (THIAMINE) 82 nmol/L (78-185)
[2018-06-09] MEDS: 1/2 NS + KCL 20 MEQ 1,000 ML IV ×3 (00:35→13:00)
[2018-06-09] MEDS: CEFTRIAXONE 2 GM/50 ML (PMX) 50 ML IVPB ×2 (02:16→14:21)
[2018-06-09] MEDS: ACETAMINOPHEN 1000MG/100ML IV 100 ML IVPB ×4 (03:05→20:26)
[2018-06-09 05:15] LABS: ADD MAN DIFF? NO
[2018-06-09 05:19] LABS: BASOPHIL # 0.1 10^3/ul (0.0-0.1); BASOPHILS % 0.5 % (0.0-2.0); EOSINOPHILS # 0.1 10^3/ul (0.0-0.5); EOSINOPHILS % 0.5 % (0.0-7.0); HEMATOCRIT 25.4 % (42.0-52.0); HEMOGLOBIN 8.4 g/dl (14.0-18.0); LYMPHOCYTES # 1.2 10^3/ul (0.8-2.9); LYMPHOCYTES % 8.7 % (15.0-51.0); MEAN CORPUSCULAR HEMOGLOBIN 26.4 pg (29.0-33.0); MEAN CORPUSCULAR HGB CONC 33.1 g/dl (32.0-37.0); MEAN CORPUSCULAR VOLUME 79.9 fl (82.0-101.0); MEAN PLATELET VOLUME 10.1 fl (7.4-10.4); MONOCYTE # 0.8 10^3/ul (0.3-0.9); MONOCYTES % 6.1 % (0.0-11.0); NEUTROPHIL # 11.5 10^3/ul (1.6-7.5); NEUTROPHILS % 83.8 % (39.0-77.0); PLATELET COUNT 288 10^3/UL (140-415); RED BLOOD COUNT 3.18 10^6/ul (4.70-6.10); RED CELL DISTRIBUTION WIDTH 15.4 % (11.5-14.5)
[2018-06-09 05:19] LABS: WHITE BLOOD COUNT 13.7 10^3/ul (4.8-10.8)
[2018-06-09 05:58] LABS: ANION GAP 11 (8-16); BLOOD UREA NITROGEN 38 mg/dl (7-20); CARBON DIOXIDE 23 mmol/L (21-31); CHLORIDE 108 mmol/L (97-110); CREATININE 1.98 mg/dl (0.61-1.24); GLUCOSE 105 mg/dl (70-220); PHOSPHORUS 4.4 mg/dl (2.5-4.9); POTASSIUM 4.5 mmol/L (3.5-5.1); SODIUM 137 mmol/L (135-144)
[2018-06-09] MEDS: oxyCODONE 5 MG TAB PO (06:09)
[2018-06-09] MEDS: DOCUSATE SODIUM 250 MG CAP PO (08:38)
[2018-06-09] MEDS: ASPIRIN 81 MG TAB PO (08:38)
[2018-06-09] MEDS: FISH OIL 1,000 MG CAP PO ×2 (08:39→20:27)
[2018-06-09] MEDS: FERROUS SULFATE (EC) 325 MG TAB PO ×2 (08:39→20:27)
[2018-06-09] MEDS: ASCORBIC ACID 500 MG TAB PO ×2 (08:39→20:27)
[2018-06-09] MEDS: CYCLOBENZAPRINE 10 MG TAB PO ×3 (08:39→20:28)
[2018-06-09] MEDS: BETHANECHOL 25 MG TAB PO ×3 (08:40→20:27)
[2018-06-09] MEDS: NIFEdipine (XL) 90 MG TAB PO ×2 (08:40→09:00)
[2018-06-09] MEDS: ENOXAPARIN 40 MG/0.4 ML SYG SC (08:42)
[2018-06-09] MEDS: NEOMYC/POLYMYX/BACIT 30 GM OINT TOP ×2 (09:00→20:28)
[2018-06-09] MEDS: DOXAZOSIN 4 MG TAB PO (20:27)
[2018-06-09 22:52] LABS: ADD UMIC YES; UR ASCORBIC ACID 20 mg/dL (NEGATIVE); UR BILIRUBIN (Dip) NEGATIVE (NEGATIVE); UR BLOOD (Dip) 2+ mg/dL (NEGATIVE); UR CLARITY SLIGHTLY CLOUDY (CLEAR); UR COLOR YELLOW (YELLOW); UR GLUCOSE (Dip) NEGATIVE (NEGATIVE); UR KETONES (Dip) NEGATIVE (NEGATIVE); UR LEUKOCYTE ESTERASE (Dip) NEGATIVE Leu/ul (NEGATIVE); UR NITRITE (Dip) NEGATIVE (NEGATIVE); UR RBC 1 /HPF (0-5); UR SPECIFIC GRAVITY (Dip) 1.015 (1.003-1.030); UR TOTAL PROTEIN (Dip) NEGATIVE (NEGATIVE); UR UROBILINOGEN (Dip) NEGATIVE (NEGATIVE); UR WBC 1 /HPF (0-5)
[2018-06-09 23:28] LABS: SODIUM,URINE RANDOM 35 mmol/L (30-90)
[2018-06-09 23:28] LABS: CREATININE,URINE RANDOM 73.29 mg/dl (20-370)
[2018-06-10] MEDS: CEFTRIAXONE 2 GM/50 ML (PMX) 50 ML IVPB ×2 (02:17→14:43)
[2018-06-10] MEDS: ACETAMINOPHEN 1000MG/100ML IV 100 ML IVPB ×2 (03:15→08:24)
[2018-06-10 05:23] LABS: ADD MAN DIFF? NO
[2018-06-10 05:39] LABS: BASOPHIL # 0.1 10^3/ul (0.0-0.1); BASOPHILS % 0.5 % (0.0-2.0); EOSINOPHILS # 0.1 10^3/ul (0.0-0.5); EOSINOPHILS % 1.2 % (0.0-7.0); HEMATOCRIT 25.1 % (42.0-52.0); HEMOGLOBIN 8.2 g/dl (14.0-18.0); LYMPHOCYTES # 1.3 10^3/ul (0.8-2.9); LYMPHOCYTES % 10.7 % (15.0-51.0); MEAN CORPUSCULAR HEMOGLOBIN 26.4 pg (29.0-33.0); MEAN CORPUSCULAR HGB CONC 32.7 g/dl (32.0-37.0); MEAN CORPUSCULAR VOLUME 80.7 fl (82.0-101.0); MONOCYTE # 0.7 10^3/ul (0.3-0.9); MONOCYTES % 5.8 % (0.0-11.0); NEUTROPHIL # 9.5 10^3/ul (1.6-7.5); NEUTROPHILS % 81.3 % (39.0-77.0); PLATELET COUNT 281 10^3/UL (140-415); RED BLOOD COUNT 3.11 10^6/ul (4.70-6.10); RED CELL DISTRIBUTION WIDTH 15.5 % (11.5-14.5)
[2018-06-10 05:39] LABS: WHITE BLOOD COUNT 11.7 10^3/ul (4.8-10.8)
[2018-06-10 06:24] LABS: ANION GAP 9 (8-16)
[2018-06-10 06:42] LABS: BLOOD UREA NITROGEN 29 mg/dl (7-20); CALCIUM 7.9 mg/dl (8.4-10.2); CARBON DIOXIDE 23 mmol/L (21-31); CHLORIDE 111 mmol/L (97-110); CREATININE 1.53 mg/dl (0.61-1.24); GLUCOSE 88 mg/dl (70-220); MAGNESIUM 2.1 mg/dl (1.7-2.5); PHOSPHORUS 3.4 mg/dl (2.5-4.9); POTASSIUM 4.4 mmol/L (3.5-5.1); SODIUM 139 mmol/L (135-144)
[2018-06-10] MEDS: ASCORBIC ACID 500 MG TAB PO ×2 (08:24→20:43)
[2018-06-10] MEDS: FISH OIL 1,000 MG CAP PO ×2 (08:24→20:42)
[2018-06-10] MEDS: BETHANECHOL 25 MG TAB PO ×3 (08:24→20:42)
[2018-06-10] MEDS: ASPIRIN 81 MG TAB PO (08:24)
[2018-06-10] MEDS: DOCUSATE SODIUM 250 MG CAP PO (08:24)
[2018-06-10] MEDS: CYCLOBENZAPRINE 10 MG TAB PO ×3 (08:25→20:42)
[2018-06-10] MEDS: FERROUS SULFATE (EC) 325 MG TAB PO ×2 (08:26→20:43)
[2018-06-10] MEDS: ENOXAPARIN 40 MG/0.4 ML SYG SC (08:27)
[2018-06-10] MEDS: NIFEdipine (XL) 90 MG TAB PO (08:29)
[2018-06-10] MEDS: NEOMYC/POLYMYX/BACIT 30 GM OINT TOP ×2 (08:30→21:27)
[2018-06-10] MEDS: 1/2 NS + KCL 20 MEQ 1,000 ML IV (12:53)
[2018-06-10] MEDS: HYDROmorphONE 1 MG/ML SYG IV (14:15)
[2018-06-10] MEDS: DOXAZOSIN 4 MG TAB PO (20:43)
[2018-06-10] MEDS ORDERED: NIFEdipine (XL) 90 MG TAB PO (21:00)
[2018-06-10] MEDS: NIFEdipine (XL) 60 MG TAB PO (21:27)
[2018-06-11] MEDS: CEFTRIAXONE 2 GM/50 ML (PMX) 50 ML IVPB ×2 (02:21→13:09)
[2018-06-11] MEDS: oxyCODONE 5 MG TAB PO ×2 (03:17→10:33)
[2018-06-11 05:28] LABS: ADD MAN DIFF? NO
[2018-06-11 05:41] LABS: WHITE BLOOD COUNT 9.2 10^3/ul (4.8-10.8)
[2018-06-11 05:41] LABS: BASOPHIL # 0.1 10^3/ul (0.0-0.1); BASOPHILS % 0.9 % (0.0-2.0); EOSINOPHILS # 0.2 10^3/ul (0.0-0.5); EOSINOPHILS % 2.1 % (0.0-7.0); LYMPHOCYTES # 1.5 10^3/ul (0.8-2.9); LYMPHOCYTES % 16.1 % (15.0-51.0); MEAN CORPUSCULAR VOLUME 81.2 fl (82.0-101.0); MONOCYTE # 0.6 10^3/ul (0.3-0.9); MONOCYTES % 6.3 % (0.0-11.0); NEUTROPHIL # 6.8 10^3/ul (1.6-7.5); NEUTROPHILS % 74.1 % (39.0-77.0); PLATELET COUNT 319 10^3/UL (140-415); RED BLOOD COUNT 3.08 10^6/ul (4.70-6.10); RED CELL DISTRIBUTION WIDTH 15.8 % (11.5-14.5)
[2018-06-11 06:01] LABS: BLOOD UREA NITROGEN 23 mg/dl (7-20); CALCIUM 8.5 mg/dl (8.4-10.2); CARBON DIOXIDE 25 mmol/L (21-31); CHLORIDE 107 mmol/L (97-110); GLUCOSE 85 mg/dl (70-220); MAGNESIUM 2.1 mg/dl (1.7-2.5); PHOSPHORUS 3.9 mg/dl (2.5-4.9); POTASSIUM 4.4 mmol/L (3.5-5.1); SODIUM 138 mmol/L (135-144)
[2018-06-11] MEDS: 1/2 NS + KCL 20 MEQ 1,000 ML IV (06:51)
[2018-06-11] MEDS: DOCUSATE SODIUM 250 MG CAP PO (08:54)
[2018-06-11] MEDS: FERROUS SULFATE (EC) 325 MG TAB PO ×2 (08:54→20:45)
[2018-06-11] MEDS: ASPIRIN 81 MG TAB PO (08:54)
[2018-06-11] MEDS: ASCORBIC ACID 500 MG TAB PO ×2 (08:54→20:45)
[2018-06-11] MEDS: FISH OIL 1,000 MG CAP PO ×2 (08:55→20:46)
[2018-06-11] MEDS: BETHANECHOL 25 MG TAB PO ×3 (08:55→20:46)
[2018-06-11] MEDS: CYCLOBENZAPRINE 10 MG TAB PO ×3 (08:55→20:46)
[2018-06-11] MEDS: NIFEdipine (XL) 60 MG TAB PO ×2 (08:56→20:47)
[2018-06-11] MEDS: NEOMYC/POLYMYX/BACIT 30 GM OINT TOP ×2 (09:00→21:17)
[2018-06-11] MEDS: ENOXAPARIN 40 MG/0.4 ML SYG SC (09:02)
[2018-06-11 09:07] LABS: ANION GAP 6 (5-13)
[2018-06-11] MEDS: POLYETHYLENE GLYCOL 17 GM PACKET PO (10:33)
[2018-06-11 14:31] LABS: CREATININE, RANDOM URINE 78 mg/dL (20-320); MICROALBUMIN 1.9 mg/dL; MICROALBUMIN/CREATININE RATIO 24 (<30)
[2018-06-11] MEDS ORDERED: HYDROmorphONE 2 MG TAB PO (17:00)
[2018-06-11] MEDS: DOXAZOSIN 4 MG TAB PO (20:47)
[2018-06-12] MEDS: CEFTRIAXONE 2 GM/50 ML (PMX) 50 ML IVPB ×2 (02:55→14:45)
[2018-06-12 05:13] LABS: ADD MAN DIFF? NO
[2018-06-12 05:18] LABS: WHITE BLOOD COUNT 7.4 10^3/ul (4.8-10.8)
[2018-06-12 05:18] LABS: BASOPHIL # 0.1 10^3/ul (0.0-0.1); BASOPHILS % 0.9 % (0.0-2.0); EOSINOPHILS # 0.3 10^3/ul (0.0-0.5); EOSINOPHILS % 3.8 % (0.0-7.0); HEMATOCRIT 24.7 % (42.0-52.0); HEMOGLOBIN 8.1 g/dl (14.0-18.0); LYMPHOCYTES # 1.4 10^3/ul (0.8-2.9); LYMPHOCYTES % 18.2 % (15.0-51.0); MEAN CORPUSCULAR HEMOGLOBIN 26.7 pg (29.0-33.0); MEAN CORPUSCULAR HGB CONC 32.8 g/dl (32.0-37.0); MEAN CORPUSCULAR VOLUME 81.5 fl (82.0-101.0); MEAN PLATELET VOLUME 10.1 fl (7.4-10.4); MONOCYTE # 0.6 10^3/ul (0.3-0.9); MONOCYTES % 8.5 % (0.0-11.0); NEUTROPHILS % 68.2 % (39.0-77.0); PLATELET COUNT 325 10^3/UL (140-415); RED BLOOD COUNT 3.03 10^6/ul (4.70-6.10); RED CELL DISTRIBUTION WIDTH 15.5 % (11.5-14.5)
[2018-06-12 05:44] LABS: ANION GAP 5 (5-13); BLOOD UREA NITROGEN 21 mg/dl (7-20); CALCIUM 8.7 mg/dl (8.4-10.2); CARBON DIOXIDE 27 mmol/L (21-31); CHLORIDE 106 mmol/L (97-110); CREATININE 1.34 mg/dl (0.61-1.24); GLUCOSE 96 mg/dl (70-220); PHOSPHORUS 4.7 mg/dl (2.5-4.9); POTASSIUM 4.4 mmol/L (3.5-5.1); SODIUM 138 mmol/L (135-144)
[2018-06-12] MEDS: ASPIRIN 81 MG TAB PO (08:54)
[2018-06-12] MEDS: FERROUS SULFATE (EC) 325 MG TAB PO ×2 (08:54→20:38)
[2018-06-12] MEDS: ASCORBIC ACID 500 MG TAB PO ×2 (08:54→20:38)
[2018-06-12] MEDS: FISH OIL 1,000 MG CAP PO ×2 (08:54→20:39)
[2018-06-12] MEDS: DOCUSATE SODIUM 250 MG CAP PO (08:55)
[2018-06-12] MEDS: BETHANECHOL 25 MG TAB PO ×3 (08:56→20:38)
[2018-06-12] MEDS: NEOMYC/POLYMYX/BACIT 30 GM OINT TOP ×2 (08:56→20:44)
[2018-06-12] MEDS: CYCLOBENZAPRINE 10 MG TAB PO ×3 (08:57→20:39)
[2018-06-12] MEDS: NIFEdipine (XL) 60 MG TAB PO ×2 (08:57→20:43)
[2018-06-12] MEDS: ENOXAPARIN 40 MG/0.4 ML SYG SC (09:07)
[2018-06-12] MEDS: DOXAZOSIN 4 MG TAB PO (20:43)
[2018-06-13] MEDS: CEFTRIAXONE 2 GM/50 ML (PMX) 50 ML IVPB ×2 (02:30→13:33)
[2018-06-13 05:30] LABS: ADD MAN DIFF? NO
[2018-06-13 05:33] LABS: BASOPHIL # 0.1 10^3/ul (0.0-0.1); BASOPHILS % 1.3 % (0.0-2.0); EOSINOPHILS # 0.2 10^3/ul (0.0-0.5); HEMATOCRIT 25.4 % (42.0-52.0); HEMOGLOBIN 8.2 g/dl (14.0-18.0); LYMPHOCYTES # 1.1 10^3/ul (0.8-2.9); LYMPHOCYTES % 17.4 % (15.0-51.0); MEAN CORPUSCULAR HEMOGLOBIN 26.1 pg (29.0-33.0); MEAN CORPUSCULAR HGB CONC 32.3 g/dl (32.0-37.0); MEAN CORPUSCULAR VOLUME 80.9 fl (82.0-101.0); MEAN PLATELET VOLUME 9.9 fl (7.4-10.4); MONOCYTE # 0.7 10^3/ul (0.3-0.9); MONOCYTES % 10.7 % (0.0-11.0); NEUTROPHIL # 4.1 10^3/ul (1.6-7.5); NEUTROPHILS % 67.1 % (39.0-77.0); PLATELET COUNT 374 10^3/UL (140-415); RED BLOOD COUNT 3.14 10^6/ul (4.70-6.10); RED CELL DISTRIBUTION WIDTH 15.2 % (11.5-14.5)
[2018-06-13 05:33] LABS: WHITE BLOOD COUNT 6.1 10^3/ul (4.8-10.8)
[2018-06-13 06:21] LABS: ANION GAP 5 (5-13); BLOOD UREA NITROGEN 19 mg/dl (7-20); CALCIUM 8.4 mg/dl (8.4-10.2); CARBON DIOXIDE 28 mmol/L (21-31); CHLORIDE 105 mmol/L (97-110); CREATININE 1.34 mg/dl (0.61-1.24); GLUCOSE 96 mg/dl (70-220); MAGNESIUM 1.8 mg/dl (1.7-2.5); PHOSPHORUS 4.6 mg/dl (2.5-4.9); POTASSIUM 4.2 mmol/L (3.5-5.1); SODIUM 138 mmol/L (135-144)
[2018-06-13] MEDS: FISH OIL 1,000 MG CAP PO ×2 (08:15→20:46)
[2018-06-13] MEDS: NEOMYC/POLYMYX/BACIT 30 GM OINT TOP ×2 (08:15→21:00)
[2018-06-13] MEDS: ENOXAPARIN 40 MG/0.4 ML SYG SC (08:16)
[2018-06-13] MEDS: NIFEdipine (XL) 60 MG TAB PO ×2 (08:17→20:46)
[2018-06-13] MEDS: DOCUSATE SODIUM 250 MG CAP PO (08:17)
[2018-06-13] MEDS: BETHANECHOL 25 MG TAB PO ×3 (08:17→20:46)
[2018-06-13] MEDS: ASPIRIN 81 MG TAB PO (08:17)
[2018-06-13] MEDS: ASCORBIC ACID 500 MG TAB PO ×2 (08:18→20:45)
[2018-06-13] MEDS: FERROUS SULFATE (EC) 325 MG TAB PO ×2 (08:18→20:45)
[2018-06-13] MEDS: CYCLOBENZAPRINE 10 MG TAB PO ×3 (08:18→20:46)
[2018-06-13] MEDS: DOXAZOSIN 4 MG TAB PO (20:46)
[2018-06-14] MEDS: CEFTRIAXONE 2 GM/50 ML (PMX) 50 ML IVPB ×2 (02:22→14:22)
[2018-06-14] MEDS: CEPASTAT LOZENGE MT (03:32)
[2018-06-14] MEDS: DOCUSATE SODIUM 250 MG CAP PO (09:00)
[2018-06-14] MEDS: ASPIRIN 81 MG TAB PO (09:22)
[2018-06-14] MEDS: FISH OIL 1,000 MG CAP PO ×2 (09:22→20:21)
[2018-06-14] MEDS: FERROUS SULFATE (EC) 325 MG TAB PO ×2 (09:23→20:19)
[2018-06-14] MEDS: ASCORBIC ACID 500 MG TAB PO ×2 (09:23→20:21)
[2018-06-14] MEDS: BETHANECHOL 25 MG TAB PO ×3 (09:23→20:20)
[2018-06-14] MEDS: CYCLOBENZAPRINE 10 MG TAB PO ×3 (09:24→20:20)
[2018-06-14] MEDS: ENOXAPARIN 40 MG/0.4 ML SYG SC (09:30)
[2018-06-14] MEDS: NIFEdipine (XL) 60 MG TAB PO ×2 (09:30→20:21)
[2018-06-14] MEDS: NEOMYC/POLYMYX/BACIT 30 GM OINT TOP ×2 (09:32→20:23)
[2018-06-14] MEDS: ACETAMINOPHEN 500 MG TAB PO (17:10)
[2018-06-14] MEDS: DOXAZOSIN 4 MG TAB PO (20:21)
[2018-06-15] MEDS: CEFTRIAXONE 2 GM/50 ML (PMX) 50 ML IVPB ×2 (02:17→14:22)
[2018-06-15 04:58] LABS: ADD MAN DIFF? NO
[2018-06-15 05:00] LABS: BASOPHIL # 0.1 10^3/ul (0.0-0.1); BASOPHILS % 1.3 % (0.0-2.0); EOSINOPHILS % 0.6 % (0.0-7.0); HEMATOCRIT 25.8 % (42.0-52.0); HEMOGLOBIN 8.3 g/dl (14.0-18.0); LYMPHOCYTES % 15.6 % (15.0-51.0); MEAN CORPUSCULAR HEMOGLOBIN 26.2 pg (29.0-33.0); MEAN CORPUSCULAR HGB CONC 32.2 g/dl (32.0-37.0); MEAN CORPUSCULAR VOLUME 81.4 fl (82.0-101.0); MEAN PLATELET VOLUME 9.8 fl (7.4-10.4); MONOCYTE # 0.8 10^3/ul (0.3-0.9); MONOCYTES % 12.8 % (0.0-11.0); NEUTROPHIL # 4.4 10^3/ul (1.6-7.5); NEUTROPHILS % 68.8 % (39.0-77.0); PLATELET COUNT 462 10^3/UL (140-415); RED BLOOD COUNT 3.17 10^6/ul (4.70-6.10)
[2018-06-15 05:00] LABS: WHITE BLOOD COUNT 6.4 10^3/ul (4.8-10.8)
[2018-06-15 05:43] LABS: ANION GAP 10 (5-13); BLOOD UREA NITROGEN 19 mg/dl (7-20); CALCIUM 8.3 mg/dl (8.4-10.2); CARBON DIOXIDE 25 mmol/L (21-31); CHLORIDE 103 mmol/L (97-110); CREATININE 1.41 mg/dl (0.61-1.24); GLUCOSE 97 mg/dl (70-220); MAGNESIUM 1.8 mg/dl (1.7-2.5); PHOSPHORUS 4.4 mg/dl (2.5-4.9); POTASSIUM 3.7 mmol/L (3.5-5.1); SODIUM 138 mmol/L (135-144)
[2018-06-15] MEDS: FISH OIL 1,000 MG CAP PO ×2 (09:00→22:24)
[2018-06-15] MEDS: ASCORBIC ACID 500 MG TAB PO ×2 (09:00→22:26)
[2018-06-15] MEDS: FERROUS SULFATE (EC) 325 MG TAB PO ×2 (09:00→22:25)
[2018-06-15] MEDS: BETHANECHOL 25 MG TAB PO ×3 (09:01→22:25)
[2018-06-15] MEDS: NIFEdipine (XL) 60 MG TAB PO ×2 (09:01→22:27)
[2018-06-15] MEDS: ASPIRIN 81 MG TAB PO (09:01)
[2018-06-15] MEDS: CYCLOBENZAPRINE 10 MG TAB PO ×3 (09:02→22:24)
[2018-06-15] MEDS: DOCUSATE SODIUM 250 MG CAP PO (09:03)
[2018-06-15] MEDS: ENOXAPARIN 40 MG/0.4 ML SYG SC (09:04)
[2018-06-15] MEDS: NEOMYC/POLYMYX/BACIT 30 GM OINT TOP ×3 (09:05→22:27)
[2018-06-15] MEDS: DOXAZOSIN 4 MG TAB PO (22:24)
[2018-06-15] MEDS: MINOXIDIL 2.5 MG TAB PO (22:25)
[2018-06-16] MEDS: CEFTRIAXONE 2 GM/50 ML (PMX) 50 ML IVPB ×2 (01:14→13:42)
[2018-06-16 06:10] LABS: ANION GAP 12 (5-13); BLOOD UREA NITROGEN 21 mg/dl (7-20); CALCIUM 8.3 mg/dl (8.4-10.2); CARBON DIOXIDE 24 mmol/L (21-31); CHLORIDE 101 mmol/L (97-110); CREATININE 1.28 mg/dl (0.61-1.24); GLUCOSE 94 mg/dl (70-220); MAGNESIUM 1.9 mg/dl (1.7-2.5); PHOSPHORUS 4.5 mg/dl (2.5-4.9); POTASSIUM 4.2 mmol/L (3.5-5.1); SODIUM 137 mmol/L (135-144)
[2018-06-16] MEDS: DOCUSATE SODIUM 250 MG CAP PO (09:03)
[2018-06-16] MEDS: FISH OIL 1,000 MG CAP PO ×2 (09:03→20:52)
[2018-06-16] MEDS: FERROUS SULFATE (EC) 325 MG TAB PO ×2 (09:04→20:51)
[2018-06-16] MEDS: MINOXIDIL 2.5 MG TAB PO ×2 (09:04→20:50)
[2018-06-16] MEDS: ASCORBIC ACID 500 MG TAB PO ×2 (09:04→20:51)
[2018-06-16] MEDS: BETHANECHOL 25 MG TAB PO ×3 (09:04→20:51)
[2018-06-16] MEDS: NIFEdipine (XL) 60 MG TAB PO ×2 (09:04→20:49)
[2018-06-16] MEDS: ASPIRIN 81 MG TAB PO (09:05)
[2018-06-16] MEDS: CYCLOBENZAPRINE 10 MG TAB PO ×3 (09:05→20:51)
[2018-06-16] MEDS: NEOMYC/POLYMYX/BACIT 30 GM OINT TOP (09:06)
[2018-06-16] MEDS: ENOXAPARIN 40 MG/0.4 ML SYG SC (09:08)
[2018-06-16] MEDS: ACETAMINOPHEN 500 MG TAB PO (20:49)
[2018-06-16] MEDS: DOXAZOSIN 4 MG TAB PO (20:52)
[2018-06-17] MEDS: CEFTRIAXONE 2 GM/50 ML (PMX) 50 ML IVPB ×2 (02:07→14:03)
[2018-06-17] MEDS: ASCORBIC ACID 500 MG TAB PO (09:42)
[2018-06-17] MEDS: DOCUSATE SODIUM 250 MG CAP PO (09:42)
[2018-06-17] MEDS: FERROUS SULFATE (EC) 325 MG TAB PO (09:42)
[2018-06-17] MEDS: ASPIRIN 81 MG TAB PO (09:42)
[2018-06-17] MEDS: FISH OIL 1,000 MG CAP PO (09:42)
[2018-06-17] MEDS: CYCLOBENZAPRINE 10 MG TAB PO ×2 (09:43→14:02)
[2018-06-17] MEDS: NIFEdipine (XL) 60 MG TAB PO (09:44)
[2018-06-17] MEDS: MINOXIDIL 2.5 MG TAB PO (09:44)
[2018-06-17] MEDS: BETHANECHOL 25 MG TAB PO ×2 (09:45→14:02)
[2018-06-17] MEDS: ENOXAPARIN 40 MG/0.4 ML SYG SC (09:47)
== END 2018-06-17 18:10 | DRG 853 ==
LOC: ICU 06-08 01:39 → MS1 06-10 22:50 → E/R 13:32 → MS1 19:15
PROC: 00NY0ZZ Release Lumbar Spinal Cord, Open Approach (ICD-10-PCS; principal; 2018-05-23 09:00)
PROC: 01NB0ZZ Release Lumbar Nerve, Open Approach (ICD-10-PCS; 2018-05-23 09:00)
PROC: 0K9 Muscles, Drainage (ICD-10-PCS; 2018-05-23 09:00)
PROC: 009U0ZX Drainage of Spinal Canal, Open Approach, Diagnostic (ICD-10-PCS; 2018-05-23 09:00)
PROC: 4A11X4G Monitoring of Peripheral Nervous Electrical Activity, Intraoperative, External Approach (ICD-10-PCS; 2018-05-23 09:00)
PROC: 00NX0ZZ Release Thoracic Spinal Cord, Open Approach (ICD-10-PCS; 2018-05-23 09:06)
PROC: 00NY0ZZ Release Lumbar Spinal Cord, Open Approach (ICD-10-PCS; 2018-05-23 09:06)
PROC: 01N80ZZ Release Thoracic Nerve, Open Approach (ICD-10-PCS; 2018-05-23 09:06)
PROC: 01NB0ZZ Release Lumbar Nerve, Open Approach (ICD-10-PCS; 2018-05-23 09:06)
PROC: 00BT0ZX Excision of Spinal Meninges, Open Approach, Diagnostic (ICD-10-PCS; 2018-05-23 09:06)
PROC: 30233N1 Transfusion of Nonautologous Red Blood Cells into Peripheral Vein, Percutaneous Approach (ICD-10-PCS; 2018-05-23 09:06)
PROC: 30233K1 Transfusion of Nonautologous Frozen Plasma into Peripheral Vein, Percutaneous Approach (ICD-10-PCS; 2018-05-23 09:06)
PROC: 02HV33Z Insertion of Infusion Device into Superior Vena Cava, Percutaneous Approach (ICD-10-PCS; 2018-05-23 09:06)
PROC: 5A1935Z Respiratory Ventilation, Less than 24 Consecutive Hours (ICD-10-PCS; 2018-05-23 09:06)
DX: A41.9 Sepsis, unspecified organism (principal); G06.1 Intraspinal abscess and granuloma; J18.9 Pneumonia, unspecified organism; J95.821 Acute postprocedural respiratory failure; N17.9 Acute kidney failure, unspecified; M60.08 Infective myositis, other site; E87.1 Hypo-osmolality and hyponatremia; N39.0 Urinary tract infection, site not specified; J90 Pleural effusion, not elsewhere classified; R65.20 Severe sepsis without septic shock; B95.61 Methicillin susceptible Staphylococcus aureus infection as the cause of diseases classified elsewhere; D50.0 Iron deficiency anemia secondary to blood loss (chronic); E78.5 Hyperlipidemia, unspecified; E83.41 Hypermagnesemia; I12.9 Hypertensive chronic kidney disease with stage 1 through stage 4 chronic kidney disease, or unspecified chronic kidney disease; N18.9 Chronic kidney disease, unspecified; M46.07 Spinal enthesopathy, lumbosacral region; M48.061 Spinal stenosis, lumbar region without neurogenic claudication; M48.07 Spinal stenosis, lumbosacral region; M48.04 Spinal stenosis, thoracic region; M60.88 Other myositis, other site; M54.2 Cervicalgia; N14.1 Nephropathy induced by other drugs, medicaments and biological substances; N13.9 Obstructive and reflux uropathy, unspecified; R33.8 Other retention of urine; R60.9 Edema, unspecified; Y95 Nosocomial condition; Z87.828 Personal history of other (healed) physical injury and trauma; Z88.0 Allergy status to penicillin
CPT/HCPCS: 36430; 36569; 36600; 70551; 71045; 71250; 72020; 72125; 72128; 72131; 72141; 72146; 72148; 72270; 74176; 76775; 76937; 78315; 80048; 80053; 80061; 80202; 80307; 81001; 81003; 82043; 82270; 82607; 82728; 82803; 83036; 83540; 83735; 83880; 84100; 84153; 84154; 84155; 84300; 84425; 84443; 84484; 85025; 85610; 85651; 85730; 86140; 86480; 86592; 86703; 86706; 86708; 86803; 86850; 86900; 86901; 86920; 87040; 87070; 87075; 87081; 87086; 87102; 87116; 87340; 88304; 88311; 93306; 94002; 94770; 96374; 96375; 96376; 97110; 97162; 97164; 97530; 99285-25; A9503

== ENCOUNTER 2018-06-17 18:28 | Inpatient (IN) | payer OTHER ==
[2018-06-17] MEDS ORDERED: oxyCODONE 5 MG TAB PO ×2 (22:00)
[2018-06-17] MEDS ORDERED: hydrALAzine 20 MG INJ IV (22:00)
[2018-06-17] MEDS ORDERED: ALBUTEROL/IPRATROPIUM (NEB) 3 ML AMP HHN (22:00)
[2018-06-17] MEDS ORDERED: POLYETHYLENE GLYCOL 17 GM PACKET PO (22:00)
[2018-06-17] MEDS ORDERED: ACETAMINOPHEN 500 MG TAB PO (22:00)
[2018-06-17] MEDS ORDERED: ONDANSETRON 4 MG INJ IV (22:00)
[2018-06-17] MEDS: FISH OIL 1,000 MG CAP PO (23:48)
[2018-06-17] MEDS: CYCLOBENZAPRINE 10 MG TAB PO (23:49)
[2018-06-17] MEDS: ASCORBIC ACID 500 MG TAB PO (23:49)
[2018-06-17] MEDS: FERROUS SULFATE (EC) 325 MG TAB PO (23:49)
[2018-06-17] MEDS: BETHANECHOL 25 MG TAB PO (23:53)
[2018-06-17] MEDS: NIFEdipine (XL) 60 MG TAB PO (23:54)
[2018-06-17] MEDS: NEOMYC/POLYMYX/BACIT 30 GM OINT TOP (23:55)
[2018-06-17] MEDS: DOXAZOSIN 4 MG TAB PO (23:56)
[2018-06-18] MEDS: CEFTRIAXONE 2 GM/50 ML (PMX) 50 ML IVPB ×2 (02:11→13:21)
[2018-06-18 06:13] LABS: ADD UMIC YES; UR ASCORBIC ACID 40 mg/dL (NEGATIVE); UR BACTERIA FEW /HPF (NONE SEEN); UR BILIRUBIN (Dip) NEGATIVE (NEGATIVE); UR BLOOD (Dip) 3+ mg/dL (NEGATIVE); UR CLARITY SLIGHTLY CLOUDY (CLEAR); UR COLOR YELLOW (YELLOW); UR GLUCOSE (Dip) NEGATIVE (NEGATIVE); UR KETONES (Dip) NEGATIVE (NEGATIVE); UR LEUKOCYTE ESTERASE (Dip) NEGATIVE Leu/ul (NEGATIVE); UR NITRITE (Dip) NEGATIVE (NEGATIVE); UR RBC > 182 /HPF (0-5); UR SPECIFIC GRAVITY (Dip) 1.017 (1.003-1.030); UR TOTAL PROTEIN (Dip) 2+ mg/dl (NEGATIVE); UR UROBILINOGEN (Dip) NEGATIVE (NEGATIVE); UR WBC 16 /HPF (0-5)
[2018-06-18 08:23] LABS: ADD MAN DIFF? NO
[2018-06-18 08:27] LABS: BASOPHIL # 0.1 10^3/ul (0.0-0.1); BASOPHILS % 0.9 % (0.0-2.0); EOSINOPHILS % 0.4 % (0.0-7.0); HEMATOCRIT 24.7 % (42.0-52.0); HEMOGLOBIN 7.9 g/dl (14.0-18.0); LYMPHOCYTES # 1.5 10^3/ul (0.8-2.9); LYMPHOCYTES % 21.8 % (15.0-51.0); MEAN CORPUSCULAR HEMOGLOBIN 25.8 pg (29.0-33.0); MEAN CORPUSCULAR VOLUME 80.7 fl (82.0-101.0); MEAN PLATELET VOLUME 10.7 fl (7.4-10.4); MONOCYTE # 0.8 10^3/ul (0.3-0.9); MONOCYTES % 11.1 % (0.0-11.0); NEUTROPHIL # 4.4 10^3/ul (1.6-7.5); NEUTROPHILS % 65.2 % (39.0-77.0); PLATELET COUNT 424 10^3/UL (140-415); RED BLOOD COUNT 3.06 10^6/ul (4.70-6.10); RED CELL DISTRIBUTION WIDTH 14.7 % (11.5-14.5)
[2018-06-18 08:27] LABS: WHITE BLOOD COUNT 6.8 10^3/ul (4.8-10.8)
[2018-06-18 08:41] LABS: ALANINE AMINOTRANSFERASE 37 IU/L (13-69); ALBUMIN 2.5 g/dl (3.3-4.9); ALBUMIN/GLOBULIN RATIO 0.58; ALKALINE PHOSPHATASE 63 IU/L (42-121); ANION GAP 12 (5-13); ASPARTATE AMINO TRANSFERASE 40 IU/L (15-46); BILIRUBIN,INDIRECT 0.1 mg/dl (0-1.1); BILIRUBIN,TOTAL 0.1 mg/dl (0.2-1.3); BLOOD UREA NITROGEN 22 mg/dl (7-20); CALCIUM 8.1 mg/dl (8.4-10.2); CARBON DIOXIDE 24 mmol/L (21-31); CHLORIDE 102 mmol/L (97-110); Estimated GFR > 60 mL/min (>60); GLUCOSE 98 mg/dl (70-220); POTASSIUM 3.1 mmol/L (3.5-5.1); SODIUM 138 mmol/L (135-144); TOTAL PROTEIN 6.8 g/dl (6.1-8.1)
[2018-06-18] MEDS: NIFEdipine (XL) 60 MG TAB PO ×2 (09:00→21:39)
[2018-06-18] MEDS: BETHANECHOL 25 MG TAB PO ×3 (11:01→21:38)
[2018-06-18] MEDS: ASPIRIN 81 MG TAB PO (11:02)
[2018-06-18] MEDS: FISH OIL 1,000 MG CAP PO ×2 (11:02→21:38)
[2018-06-18] MEDS: DOCUSATE SODIUM 250 MG CAP PO (11:03)
[2018-06-18] MEDS: FERROUS SULFATE (EC) 325 MG TAB PO ×2 (11:03→21:40)
[2018-06-18] MEDS: CYCLOBENZAPRINE 10 MG TAB PO ×3 (11:09→21:40)
[2018-06-18] MEDS: ASCORBIC ACID 500 MG TAB PO ×2 (11:10→21:38)
[2018-06-18] MEDS: ENOXAPARIN 40 MG/0.4 ML SYG SC (11:12)
[2018-06-18] MEDS: NEOMYC/POLYMYX/BACIT 30 GM OINT TOP ×2 (11:13→21:41)
[2018-06-18 12:18] LABS: MAGNESIUM 1.9 mg/dl (1.7-2.5)
[2018-06-18] MEDS: LISINOPRIL 10 MG TAB PO (15:17)
[2018-06-18] MEDS ORDERED: BISACODYL 10 MG SUPP PR (21:00)
[2018-06-18] MEDS: DOXAZOSIN 4 MG TAB PO (21:39)
[2018-06-18] MEDS: SENNA TAB PO (21:41)
[2018-06-18] MEDS: DOCUSATE SODIUM 100 MG CAP PO (21:41)
[2018-06-18] MEDS: POTASSIUM CHLORIDE (SR) 20 MEQ TAB PO (23:52)
[2018-06-19] MEDS: CEFTRIAXONE 2 GM/50 ML (PMX) 50 ML IVPB ×2 (01:57→14:30)
[2018-06-19] MEDS: MAGNESIUM HYDROXIDE 30ML CUP PO (06:35)
[2018-06-19 07:03] LABS: ADD MAN DIFF? NO
[2018-06-19 07:14] LABS: BASOPHILS % 0.4 % (0.0-2.0); EOSINOPHILS # 0.1 10^3/ul (0.0-0.5); EOSINOPHILS % 0.6 % (0.0-7.0); HEMATOCRIT 24.8 % (42.0-52.0); LYMPHOCYTES # 1.4 10^3/ul (0.8-2.9); LYMPHOCYTES % 17.9 % (15.0-51.0); MEAN CORPUSCULAR HEMOGLOBIN 26.1 pg (29.0-33.0); MEAN CORPUSCULAR HGB CONC 32.3 g/dl (32.0-37.0); MEAN CORPUSCULAR VOLUME 80.8 fl (82.0-101.0); MEAN PLATELET VOLUME 10.8 fl (7.4-10.4); MONOCYTE # 0.6 10^3/ul (0.3-0.9); MONOCYTES % 8.1 % (0.0-11.0); NEUTROPHIL # 5.7 10^3/ul (1.6-7.5); NEUTROPHILS % 72.6 % (39.0-77.0); PLATELET COUNT 399 10^3/UL (140-415); RED BLOOD COUNT 3.07 10^6/ul (4.70-6.10); RED CELL DISTRIBUTION WIDTH 14.6 % (11.5-14.5)
[2018-06-19 07:14] LABS: WHITE BLOOD COUNT 7.9 10^3/ul (4.8-10.8)
[2018-06-19 07:35] LABS: ANION GAP 12 (5-13); BLOOD UREA NITROGEN 20 mg/dl (7-20); CALCIUM 8.1 mg/dl (8.4-10.2); CARBON DIOXIDE 23 mmol/L (21-31); CHLORIDE 104 mmol/L (97-110); CREATININE 1.17 mg/dl (0.61-1.24); Estimated GFR > 60 mL/min (>60); GLUCOSE 93 mg/dl (70-220); MAGNESIUM 1.8 mg/dl (1.7-2.5); POTASSIUM 3.5 mmol/L (3.5-5.1); SODIUM 139 mmol/L (135-144)
[2018-06-19] MEDS: ASCORBIC ACID 500 MG TAB PO ×2 (08:25→20:08)
[2018-06-19] MEDS: FISH OIL 1,000 MG CAP PO ×2 (08:25→20:07)
[2018-06-19] MEDS: BETHANECHOL 25 MG TAB PO ×3 (08:25→20:08)
[2018-06-19] MEDS: DOCUSATE SODIUM 250 MG CAP PO (08:25)
[2018-06-19] MEDS: ASPIRIN 81 MG TAB PO (08:26)
[2018-06-19] MEDS: HYDROmorphONE 2 MG TAB PO (08:26)
[2018-06-19] MEDS: DOCUSATE SODIUM 100 MG CAP PO ×2 (08:26→20:08)
[2018-06-19] MEDS: CYCLOBENZAPRINE 10 MG TAB PO ×3 (08:26→20:09)
[2018-06-19] MEDS: NEOMYC/POLYMYX/BACIT 30 GM OINT TOP ×2 (08:28→21:28)
[2018-06-19] MEDS: NIFEdipine (XL) 60 MG TAB PO ×2 (08:28→20:09)
[2018-06-19] MEDS: ENOXAPARIN 40 MG/0.4 ML SYG SC (08:34)
[2018-06-19] MEDS: FERROUS SULFATE (EC) 325 MG TAB PO ×2 (09:00→20:09)
[2018-06-19] MEDS: DOXAZOSIN 4 MG TAB PO (20:08)
[2018-06-19] MEDS: SENNA TAB PO (20:09)
[2018-06-20] MEDS: CEFTRIAXONE 2 GM/50 ML (PMX) 50 ML IVPB ×2 (01:32→13:52)
[2018-06-20 07:07] LABS: ANION GAP 12 (5-13); BLOOD UREA NITROGEN 20 mg/dl (7-20); CALCIUM 8.1 mg/dl (8.4-10.2); CARBON DIOXIDE 23 mmol/L (21-31); CHLORIDE 103 mmol/L (97-110); CREATININE 1.05 mg/dl (0.61-1.24); Estimated GFR > 60 mL/min (>60); GLUCOSE 98 mg/dl (70-220); MAGNESIUM 1.9 mg/dl (1.7-2.5); PHOSPHORUS 3.7 mg/dl (2.5-4.9); POTASSIUM 3.4 mmol/L (3.5-5.1); SODIUM 138 mmol/L (135-144)
[2018-06-20] MEDS: ASPIRIN 81 MG TAB PO (08:46)
[2018-06-20] MEDS: ASCORBIC ACID 500 MG TAB PO ×2 (08:46→21:05)
[2018-06-20] MEDS: DOCUSATE SODIUM 100 MG CAP PO ×2 (08:46→21:02)
[2018-06-20] MEDS: CEPASTAT LOZENGE MT (08:46)
[2018-06-20] MEDS: FISH OIL 1,000 MG CAP PO ×2 (08:47→21:05)
[2018-06-20] MEDS: HYDROmorphONE 2 MG TAB PO (08:47)
[2018-06-20] MEDS: BETHANECHOL 25 MG TAB PO ×3 (08:47→21:04)
[2018-06-20] MEDS: NIFEdipine (XL) 60 MG TAB PO ×2 (08:47→21:05)
[2018-06-20] MEDS: FERROUS SULFATE (EC) 325 MG TAB PO ×2 (08:47→21:04)
[2018-06-20] MEDS: CYCLOBENZAPRINE 10 MG TAB PO ×3 (08:48→21:05)
[2018-06-20] MEDS: ENOXAPARIN 40 MG/0.4 ML SYG SC (08:49)
[2018-06-20] MEDS: DOCUSATE SODIUM 250 MG CAP PO (08:51)
[2018-06-20] MEDS: NEOMYC/POLYMYX/BACIT 30 GM OINT TOP ×2 (09:00→21:06)
[2018-06-20] MEDS: POTASSIUM CHLORIDE (SR) 20 MEQ TAB PO ×2 (15:54→15:56)
[2018-06-20] MEDS: FINASTERIDE 5 MG TAB PO (15:54)
[2018-06-20] MEDS: DOXAZOSIN 4 MG TAB PO (21:05)
[2018-06-20] MEDS: SENNA TAB PO (21:05)
[2018-06-21] MEDS: CEFTRIAXONE 2 GM/50 ML (PMX) 50 ML IVPB ×2 (02:06→14:01)
[2018-06-21 07:20] LABS: ADD MAN DIFF? NO
[2018-06-21 07:23] LABS: WHITE BLOOD COUNT 7.3 10^3/ul (4.8-10.8)
[2018-06-21 07:23] LABS: BASOPHILS % 0.4 % (0.0-2.0); EOSINOPHILS # 0.2 10^3/ul (0.0-0.5); EOSINOPHILS % 2.2 % (0.0-7.0); HEMATOCRIT 23.5 % (42.0-52.0); HEMOGLOBIN 7.6 g/dl (14.0-18.0); LYMPHOCYTES # 1.7 10^3/ul (0.8-2.9); LYMPHOCYTES % 23.6 % (15.0-51.0); MEAN CORPUSCULAR HEMOGLOBIN 26.3 pg (29.0-33.0); MEAN CORPUSCULAR HGB CONC 32.3 g/dl (32.0-37.0); MEAN CORPUSCULAR VOLUME 81.3 fl (82.0-101.0); MEAN PLATELET VOLUME 10.6 fl (7.4-10.4); MONOCYTE # 0.8 10^3/ul (0.3-0.9); MONOCYTES % 10.3 % (0.0-11.0); NEUTROPHIL # 4.6 10^3/ul (1.6-7.5); PLATELET COUNT 347 10^3/UL (140-415); RED BLOOD COUNT 2.89 10^6/ul (4.70-6.10); RED CELL DISTRIBUTION WIDTH 14.8 % (11.5-14.5)
[2018-06-21 07:53] LABS: ANION GAP 9 (5-13); BLOOD UREA NITROGEN 18 mg/dl (7-20); CALCIUM 7.9 mg/dl (8.4-10.2); CARBON DIOXIDE 25 mmol/L (21-31); CHLORIDE 103 mmol/L (97-110); CREATININE 1.11 mg/dl (0.61-1.24); Estimated GFR > 60 mL/min (>60); GLUCOSE 101 mg/dl (70-220); POTASSIUM 3.7 mmol/L (3.5-5.1); SODIUM 137 mmol/L (135-144)
[2018-06-21 08:47] LABS: ERYTHROCYTE SEDIMENTATION RATE 95 mm/Hr (0-20)
[2018-06-21] MEDS: NEOMYC/POLYMYX/BACIT 30 GM OINT TOP ×4 (09:00→21:30)
[2018-06-21] MEDS: DOCUSATE SODIUM 100 MG CAP PO (09:00)
[2018-06-21] MEDS: ASPIRIN 81 MG TAB PO (09:55)
[2018-06-21] MEDS: DOCUSATE SODIUM 250 MG CAP PO (09:56)
[2018-06-21] MEDS: FISH OIL 1,000 MG CAP PO ×2 (09:56→21:23)
[2018-06-21] MEDS: FERROUS SULFATE (EC) 325 MG TAB PO ×2 (09:56→21:22)
[2018-06-21] MEDS: CYCLOBENZAPRINE 10 MG TAB PO ×3 (09:56→21:21)
[2018-06-21] MEDS: NIFEdipine (XL) 60 MG TAB PO ×2 (09:57→21:20)
[2018-06-21] MEDS: FINASTERIDE 5 MG TAB PO (09:57)
[2018-06-21] MEDS: ASCORBIC ACID 500 MG TAB PO ×2 (09:58→21:22)
[2018-06-21] MEDS: BETHANECHOL 25 MG TAB PO ×3 (09:58→21:23)
[2018-06-21] MEDS: POTASSIUM CHLORIDE (SR) 20 MEQ TAB PO (09:58)
[2018-06-21] MEDS: ENOXAPARIN 40 MG/0.4 ML SYG SC (10:01)
[2018-06-21] MEDS ORDERED: EPOETIN 2000 UNITS/ML INJ (NON ESRD/NON ONCOLOGY) SC (10:30)
[2018-06-21] MEDS: EPOETIN 10000 UNITS/ML (NON ESRD/NON ONCOLOGY) SC (12:53)
[2018-06-21] MEDS: DOXAZOSIN 4 MG TAB PO (21:22)
[2018-06-21] MEDS: SENNA TAB PO (21:23)
[2018-06-22] MEDS: CEFTRIAXONE 2 GM/50 ML (PMX) 50 ML IVPB ×2 (01:11→13:48)
[2018-06-22] MEDS: NEOMYC/POLYMYX/BACIT 30 GM OINT TOP ×4 (09:00→22:05)
[2018-06-22] MEDS: FISH OIL 1,000 MG CAP PO ×2 (09:11→21:57)
[2018-06-22] MEDS: CYCLOBENZAPRINE 10 MG TAB PO ×3 (09:11→21:58)
[2018-06-22] MEDS: FERROUS SULFATE (EC) 325 MG TAB PO ×2 (09:11→21:59)
[2018-06-22] MEDS: FINASTERIDE 5 MG TAB PO (09:11)
[2018-06-22] MEDS: DOCUSATE SODIUM 250 MG CAP PO (09:11)
[2018-06-22] MEDS: ASPIRIN 81 MG TAB PO (09:11)
[2018-06-22] MEDS: ASCORBIC ACID 500 MG TAB PO ×2 (09:11→21:57)
[2018-06-22] MEDS: CEPASTAT LOZENGE MT (09:11)
[2018-06-22] MEDS: BETHANECHOL 25 MG TAB PO ×3 (09:11→21:59)
[2018-06-22] MEDS: ENOXAPARIN 40 MG/0.4 ML SYG SC (09:12)
[2018-06-22] MEDS: NIFEdipine (XL) 60 MG TAB PO ×2 (09:16→22:05)
[2018-06-22] MEDS: DOXAZOSIN 4 MG TAB PO (21:59)
[2018-06-22] MEDS: SENNA TAB PO (21:59)
[2018-06-23] MEDS: CEFTRIAXONE 2 GM/50 ML (PMX) 50 ML IVPB ×2 (02:00→13:28)
[2018-06-23] MEDS: NEOMYC/POLYMYX/BACIT 30 GM OINT TOP ×4 (09:00→21:07)
[2018-06-23] MEDS: FISH OIL 1,000 MG CAP PO ×2 (09:43→21:04)
[2018-06-23] MEDS: CYCLOBENZAPRINE 10 MG TAB PO ×3 (09:43→21:05)
[2018-06-23] MEDS: NIFEdipine (XL) 60 MG TAB PO ×2 (09:43→21:06)
[2018-06-23] MEDS: FERROUS SULFATE (EC) 325 MG TAB PO ×2 (09:43→21:04)
[2018-06-23] MEDS: FINASTERIDE 5 MG TAB PO (09:44)
[2018-06-23] MEDS: HYDROmorphONE 2 MG TAB PO (09:44)
[2018-06-23] MEDS: ASCORBIC ACID 500 MG TAB PO ×2 (09:44→21:05)
[2018-06-23] MEDS: BETHANECHOL 25 MG TAB PO ×3 (09:44→21:04)
[2018-06-23] MEDS: ASPIRIN 81 MG TAB PO (09:45)
[2018-06-23] MEDS: ENOXAPARIN 40 MG/0.4 ML SYG SC (09:45)
[2018-06-23] MEDS: DOCUSATE SODIUM 250 MG CAP PO (09:52)
[2018-06-23] MEDS: LACTULOSE 30ML CUP PO (12:52)
[2018-06-23] MEDS: SENNA TAB PO (21:04)
[2018-06-23] MEDS: DOXAZOSIN 4 MG TAB PO (21:05)
[2018-06-24] MEDS: CEFTRIAXONE 2 GM/50 ML (PMX) 50 ML IVPB ×2 (02:01→12:47)
[2018-06-24] MEDS: NIFEdipine (XL) 60 MG TAB PO (09:00)
[2018-06-24] MEDS: NEOMYC/POLYMYX/BACIT 30 GM OINT TOP ×2 (09:00→10:59)
[2018-06-24] MEDS: ASPIRIN 81 MG TAB PO (09:00)
[2018-06-24] MEDS: HYDROmorphONE 2 MG TAB PO ×2 (09:11→12:46)
[2018-06-24] MEDS: FISH OIL 1,000 MG CAP PO (09:18)
[2018-06-24] MEDS: DOCUSATE SODIUM 250 MG CAP PO (09:18)
[2018-06-24] MEDS: FINASTERIDE 5 MG TAB PO (09:19)
[2018-06-24] MEDS: ASCORBIC ACID 500 MG TAB PO (09:19)
[2018-06-24] MEDS: CYCLOBENZAPRINE 10 MG TAB PO ×2 (09:19→12:45)
[2018-06-24] MEDS: FERROUS SULFATE (EC) 325 MG TAB PO (09:20)
[2018-06-24] MEDS: ENOXAPARIN 40 MG/0.4 ML SYG SC (09:23)
[2018-06-24] MEDS: BETHANECHOL 25 MG TAB PO ×2 (09:31→13:18)
[2018-06-24 11:36] LABS: ADD MAN DIFF? NO
[2018-06-24 11:44] LABS: WHITE BLOOD COUNT 10.2 10^3/ul (4.8-10.8)
[2018-06-24 11:44] LABS: BASOPHILS % 0.4 % (0.0-2.0); EOSINOPHILS # 0.2 10^3/ul (0.0-0.5); EOSINOPHILS % 2.2 % (0.0-7.0); HEMATOCRIT 24.9 % (42.0-52.0); HEMOGLOBIN 8.1 g/dl (14.0-18.0); LYMPHOCYTES % 19.4 % (15.0-51.0); MEAN CORPUSCULAR HEMOGLOBIN 26.5 pg (29.0-33.0); MEAN CORPUSCULAR HGB CONC 32.5 g/dl (32.0-37.0); MEAN CORPUSCULAR VOLUME 81.4 fl (82.0-101.0); MEAN PLATELET VOLUME 10.3 fl (7.4-10.4); MONOCYTES % 9.3 % (0.0-11.0); NUCLEATED RED BLOOD CELLS% 0.2 /100WBC (0.0-0.0); PLATELET COUNT 417 10^3/UL (140-415); RED BLOOD COUNT 3.06 10^6/ul (4.70-6.10); RED CELL DISTRIBUTION WIDTH 14.5 % (11.5-14.5)
[2018-06-24 12:04] LABS: ANION GAP 6 (5-13); BLOOD UREA NITROGEN 16 mg/dl (7-20); CALCIUM 8.1 mg/dl (8.4-10.2); CARBON DIOXIDE 25 mmol/L (21-31); CHLORIDE 104 mmol/L (97-110); CREATININE 1.14 mg/dl (0.61-1.24); Estimated GFR > 60 mL/min (>60); GLUCOSE 120 mg/dl (70-220); PHOSPHORUS 3.9 mg/dl (2.5-4.9); POTASSIUM 3.5 mmol/L (3.5-5.1); SODIUM 135 mmol/L (135-144)
[2018-06-24] MEDS ORDERED: RISPERIDONE 0.25 MG TAB PO (21:00)
== END 2018-06-24 15:40 | DRG 949 ==
LOC: VRC 18:28
PROC: F08Z2ZZ Grooming/Personal Hygiene Treatment (ICD-10-PCS; principal; 2018-06-18)
PROC: F08Z1ZZ Dressing Techniques Treatment (ICD-10-PCS; 2018-06-18)
PROC: F08Z0ZZ Bathing/Showering Techniques Treatment (ICD-10-PCS; 2018-06-18)
PROC: F07Z5ZZ Bed Mobility Treatment (ICD-10-PCS; 2018-06-18)
PROC: F07Z8ZZ Transfer Training Treatment (ICD-10-PCS; 2018-06-18)
DX: Z48.811 Encounter for surgical aftercare following surgery on the nervous system (principal); S34.109A Unspecified injury to unspecified level of lumbar spinal cord, initial encounter; N17.0 Acute kidney failure with tubular necrosis; G93.40 Encephalopathy, unspecified; I38 Endocarditis, valve unspecified; Z74.09 Other reduced mobility; D64.9 Anemia, unspecified; D50.9 Iron deficiency anemia, unspecified; E78.5 Hyperlipidemia, unspecified; F29 Unspecified psychosis not due to a substance or known physiological condition; F41.9 Anxiety disorder, unspecified; I95.1 Orthostatic hypotension; I12.9 Hypertensive chronic kidney disease with stage 1 through stage 4 chronic kidney disease, or unspecified chronic kidney disease; N18.9 Chronic kidney disease, unspecified; M47.9 Spondylosis, unspecified; N31.9 Neuromuscular dysfunction of bladder, unspecified; R33.8 Other retention of urine; N40.1 Benign prostatic hyperplasia with lower urinary tract symptoms; N13.9 Obstructive and reflux uropathy, unspecified; X58.XXXA Exposure to other specified factors, initial encounter; Z87.01 Personal history of pneumonia (recurrent)
CPT/HCPCS: 80048; 80053; 81001; 83735; 84100; 85025; 85651; 87081; 87086; 92507; 97110; 97112; 97163; 97167; 97530; 97535; 97542